=== PATIENT | female | born 1960 | race Caucasian/White ===

== ENCOUNTER 2016-12-31 06:04 | Emergency (ER) | payer BC ==
[~2016-12-31] VITALS: Ht 172.7 cm; Wt 71.0 kg
[~2016-12-31 06:04] MED LIST: ASPI81TA28 PO; ATEN-173 PO; CHOL100010 PO; DXM/4 PO; LENA10CA3 PO; MISCCAP52 PO; POTA10CA28 PO; VALA500T39 PO; VLCI IV; ZOLE1INJ IV
[2016-12-31 06:09] VITALS: TEMP 36.7; Ht 172.7 cm; Wt 71.0 kg
[2016-12-31] MEDS ORDERED: CHOL200010 PO (06:47)
[2016-12-31] MEDS ORDERED: TURM1CAP4 PO (06:48)
[2016-12-31] MEDS ORDERED: SODIUM CHLORIDE 0.9% 250ML 250 ML IV STA (06:54)
[2016-12-31] MEDS ORDERED: SODIUM CHLORIDE 0.9% 1000ML 1,000 ML IV STA (06:54)
[2016-12-31 07:04] LABS: BASO % 0.3 %; BASO ABS # 0.02 K/uL (0-0.2); COMPLETE YES; HEMATOCRIT 40.3 % (37-47); IG% 0.3 %; LYMPH % 32.2 %; LYMPH ABS # 1.92 K/uL (1.2-3.4); MEAN CELL VOLUME 94.4 fL (80-100); MEAN CORPUSCULAR HEMOGLOBIN 32.6 pg (25-34); MEAN CORPUSCULAR HGB CONC 34.5 g/dl (32-36); MEAN PLATELET VOLUME 10.6 fL (7.4-10.4); MONO % 17.8 %; NEUT % 45.4 %; PLATELET COUNT 190 K/uL (130-400); RED BLOOD COUNT 4.27 M/uL (4.2-5.4); WHITE BLOOD COUNT 5.96 K/uL (4.8-10.8)
--- NOTE | 2016-12-31 07:09 | EMERGENCY ROOM VISIT NOTE ---
History Report prepared by Trish: Bayron Rolle Under the Supervision of: Dr. Jaelyn Siegel M.D. First contact with patient: 06:46 Chief Complaint: ABDOMINAL PAIN Stated Complaint: LWR BELLY PAIN,RT SIDE,LWR BACK PAIN Nursing Triage Summary: patient has c/o right lower quadrant abdominal pain for past couple weeks that has been worsening since yesterday. Patient sees oncologist for multiple myeloma and was told by her oncologist to be ruled out for kidney stone. History of Present Illness The patient is a 56 year old female who presents to the Emergency Room with complaints of persistent abdominal pain that started two weeks ago. She notes that the discomfort is mostly on the right side of abdomen. The patient notes that this discomfort radiates into her lower back. The patient notes that she waited because she thought it would get better. The patient also thought that it could be from her Velcade shot. However, after talking with her doctors they recommended she present to the ED for evaluation, a CT scan, and a rule out of kidney stone. The patient has a history of multiple myeloma and has multiple lesions all over her body. She has had multiple hairline fractures in her hip and femur. The patient denies blood in her stool and vomiting. Source of History: patient Onset: two weeks ago Position: abdomen Timing: other (persistent) Associated Symptoms: + back pain (radiation to low back), No hematochezia, No vomiting Review of Systems See HPI for pertinent positives & negatives. A total of 10 systems reviewed and were otherwise negative. Past Medical & Surgical Medical Problems: (1) Leaky heart valve (2) Multiple myeloma (3) Systolic murmur Surgical Problems: (1) H/O stem cell transplant Family History Cancer Heart disease Social History Smoking Status: Never Smoker Alcohol Use: none Drug Use: none Marital Status: Housing Status: lives with family Occupation Status: employed Current/Historical Medications Scheduled Aspirin (Aspirin Ec), 81 MG PO DAILY Atenolol (Tenormin), 12.5 MG PO DAILY Bortezomib (Velcade), 2.34 MG IV MONTHLY Cholecalciferol (Vitamin D), 4,000 UNIT PO DAILY Dexamethasone (Decadron), 20 MG PO MONTHLY Lenalidomide (Revlimid), 10 MG PO DAILY Potassium Chloride (Micro-K Ext Rel), 10 MEQ PO DAILY Turmeric (Curcuma Longa) (Turmeric), 7,000 UNIT PO DAILY Valacyclovir Hcl (Valtrex), 500 MG PO DAILY Scheduled PRN Cyclobenzaprine Hcl (Flexeril), 5 MG PO TID PRN for Muscle Spasms Allergies Coded Allergies: No Known Allergies (Unverified , 12/31/16) Physical Exam Vital Signs Date Time Temp Pulse Resp B/P Pulse Ox O2 Delivery O2 Flow Rate FiO2 12/31/16 12:33 77 16 135/74 99 12/31/16 10:54 69 16 120/62 97 Room Air 12/31/16 09:02 65 16 111/57 100 Room Air 12/31/16 07:36 69 12/31/16 07:28 61 16 116/47 100 Room Air 12/31/16 06:09 36.7 71 20 129/82 100 Room Air Physical Exam Vital signs reviewed. General: Well-appearing, in no significant distress. HEENT: No scleral icterus, PERRLA, neck supple. Atraumatic. Cardiovascular: Regular rate and rhythm, no extra sounds. Pulmonary: Clear to auscultation bilaterally, normal work of breathing. Abdomen: Soft, mild tenderness to palpation of RLQ with no rebound or guarding, nondistended, positive bowel sounds. Back: Minimal tenderness to palpation to low lumbar spine with no stepoff or deformity Musculoskeletal: Atraumatic, no peripheral edema. Neurologic: Patient awake alert and oriented x 3, full strength in all 4 extremities. Cranial nerves 2 through 12 grossly intact. Skin: Warm, dry, no rash Medical Decision & Procedures ER Provider Diagnostic Interpretation: X-ray results as stated below per my interpretation and radiologist interpretation. Other radiology results as stated below per my review and radiologist interpretation: ABDOMEN AND PELVIS CT WITH IV AND ORAL CONTRAST CT DOSE: HISTORY: Pain R flank, RLQ pain, multiple myeloma TECHNIQUE: Multiaxial CT images of the abdomen and pelvis were performed following the use of intravenous and oral contrast. COMPARISON STUDY: PET/CT fusion scan dated 02/04/2016 Findings: No significant abnormality identified within the abdomen or pelvis. Lung bases are clear. Liver is uniform throughout. Spleen is unremarkable. Kidneys negative for hydronephrosis. Bowel pattern overall is nonobstructive. There is no significant abdominal pelvic or inguinal adenopathy. Diffuse myelomatous change throughout all major components of the visualized thoracolumbar spine bony pelvis and hips are again noted. These findings are generally stable compared to the patient's prior PET scan. There is a small cortical fracture right transverse process of L2 which potentially represents an interval finding. There are several old right-sided rib fractures. There is no evidence for compression deformity. The appendix is not well seen although there is no significant pericecal or right lower quadrant inflammatory process. Small sections of the appendix are identified transaxial image 47 and 48 which appear normal. There is mild concave deformity superior endplate L4 felt to be old. Old fracture right pubic ring considered pre-existing IMPRESSION: Diffuse stable myelomatous change throughout all major osseous structures. 2. Nondisplaced cortical fracture right lateral transverse process of L2. 3. The bowel Pattern is nonobstructive. 4. No evidence for appendicitis. Electronically signed by: Syd Green M.D. 12/31/2016 11:24 AM Dictated Date/Time: 12/31/2016 11:[address] DOSE: 318.27 mGy.cm HISTORY: right flank pain, multiple myeloma, compression fracture TECHNIQUE: Multiaxial CT images of the lumbar spine were performed and reformatted in the sagittal and coronal plane without the use of contrast. COMPARISON: PET CT 02/04/2016. FINDINGS: Multiple lytic lesions seen scattered throughout the visualized osseous structures consistent with the patient's known history of multiple myeloma. Mild superior endplate compression fracture at L4 remains unchanged. This demonstrates up to 15% loss of height centrally. No acute pathologic fractures within the lumbar spine identified. Mild disc space narrowing at L4-L5. Disc bulges at L3-L4 and L4-L5 results in moderate to severe central canal narrowing at these levels. Moderate facet degenerative changes seen within the lower lumbar spine. Sacral Tarlov cysts remain unchanged. No paraspinal soft tissue masses. There is also mild to moderate central canal narrowing at L5-S1 due to the broad-based posterior disc bulge. IMPRESSION: 1. No change in the mild old superior endplate compression deformity at L4. No acute fractures identified within the lumbar spine. 2. Multiple small lytic lesions seen throughout the visualized osseous structures. This is consistent with the patient's history of multiple myeloma. No paraspinal soft tissue masses. 3. Degenerative changes as described above. Electronically signed by: Kristofer Lagos M.D. 12/31/2016 11:17 AM Dictated Date/Time: 12/31/2016 11:06 AM Laboratory Results 2/1/17 06:25 Red Blood Count 4.27, Mean Corpuscular Volume 94.4, Mean Corpuscular Hemoglobin 32.6, Mean Corpuscular Hemoglobin Concent 34.5, Mean Platelet Volume 10.6, Neutrophils (%) (Auto) 45.4, Lymphocytes (%) (Auto) 32.2, Monocytes (%) (Auto) 17.8, Eosinophils (%) (Auto) 4.0, Basophils (%) (Auto) 0.3, Neutrophils # (Auto ) 2.70, Lymphocytes # (Auto) 1.92, Monocytes # (Auto) 1.06, Eosinophils # (Auto ) 0.24, Basophils # (Auto) 0.02 12/31/16 06:25 Test 12/31/16 06:20 12/31/16 06:25 Urine Color YELLOW Urine Appearance CLEAR (CLEAR) Urine pH 6.5 (4.5-7.5) Urine Specific [place] 1.000 (1.000-1.030) Urine Protein NEG (NEG) Urine Glucose (UA) NEG (NEG) Urine Ketones NEG (NEG) Urine Occult Blood TRACE (NEG) Urine Nitrite NEG (NEG) Urine Bilirubin NEG (NEG) Urine Urobilinogen NEG (NEG) Urine Leukocyte Esterase NEG (NEG) Urine WBC (Auto) /hpf (0-5) Urine RBC (Auto) /hpf (0-4) Urine Hyaline Casts (Auto) /lpf (0-5) Urine Epithelial Cells (Auto) /lpf (0-5) Urine Bacteria (Auto) (NEG) Urine RBC 0-4 /hpf (0-4) Urine WBC 1-5 /hpf (0-5) Urine Epithelial Cells 0-5 /lpf (0-5) Urine Bacteria NEG (NEG) White Blood Count 5.96 K/uL (4.8-10.8) Red Blood Count 4.27 M/uL (4.2-5.4) Hemoglobin 13.9 g/dL (12.0-16.0) Hematocrit 40.3 % (37-47) Mean Corpuscular Volume 94.4 fL (80-100) Mean Corpuscular Hemoglobin 32.6 pg (25-34) Mean Corpuscular Hemoglobin Concent 34.5 g/dl (32-36) Platelet Count 190 K/uL (130-400) Mean Platelet Volume 10.6 fL (7.4-10.4) Neutrophils (%) (Auto) 45.4 % Lymphocytes (%) (Auto) 32.2 % Monocytes (%) (Auto) 17.8 % Eosinophils (%) (Auto) 4.0 % Basophils (%) (Auto) 0.3 % Neutrophils # (Auto) 2.70 K/uL (1.4-6.5) Lymphocytes # (Auto) 1.92 K/uL (1.2-3.4) Monocytes # (Auto) 1.06 K/uL (0.11-0.59) Eosinophils # (Auto) 0.24 K/uL (0-0.5) Basophils # (Auto) 0.02 K/uL (0-0.2) RDW Standard Deviation 48.9 fL (36.4-46.3) RDW Coefficient of Variation 14.3 % (11.5-14.5) Immature Granulocyte % (Auto) 0.3 % Immature Granulocyte # (Auto) 0.02 K/uL (0.00-0.02) Anion Gap 9.0 mmol/L (3-11) Est Creatinine Clear Calc Drug Dose 79.2 ml/min Estimated GFR () 95.5 Estimated GFR (Non- 82.4 BUN/Creatinine Ratio 16.9 (10-20) Calcium Level 8.9 mg/dl (8.5-10.1) Magnesium Level 1.9 mg/dl (1.8-2.4) Total Bilirubin 0.4 mg/dl (0.2-1) Direct Bilirubin < 0.1 mg/dl (0-0.2) Aspartate Amino Transf (AST/SGOT) 23 U/L (15-37) Alanine Aminotransferase (ALT/SGPT) 30 U/L (12-78) Alkaline Phosphatase 47 U/L (45-117) Total Protein 7.8 gm/dl (6.4-8.2) Albumin 4.3 gm/dl (3.4-5.0) Lipase 169 U/L (73-393) Laboratory results per my review. Medications Administered Medications (Trade) Dose Ordered Sig/Yumi Route Start Time Stop Time Status Last Admin Dose Admin Sodium Chloride 250 ml @ 999 mls/hr Q16M STAT IV 12/31/16 06:54 12/31/16 07:09 DC 12/31/16 07:04 999 MLS/HR Sodium Chloride (Nss 1000ml) 1,000 ml @ 125 mls/hr Q8H STAT IV 12/31/16 06:54 12/31/16 13:00 DC 12/31/16 07:26 125 MLS/HR ED Course 0645: Past medical records reviewed. The patient was evaluated in room B10. A complete history and physical examination was performed. 0654: Ordered NSS 1000 ml @ 125 mls/hr IV, NSS 250 ml @ 999 mls/hr IV. 0800: Ordered Ioversol 100 ml IV/ Interaction checking. 1245: Upon reevaluation, the patient appeared to have improvement of her symptoms. I discussed findings with her. She verbalized agreement of the treatment plan. The patient was discharged home. Medical Decision Differential diagnoses include kidney stone, pyelonephritis, cholecystitis, diverticulitis, compression fracture, radiculopathy. This pt was evaluated and appeared to be in no distress. IV access was obtained and lab work was drawn. Urinalysis was performed and is negative. CT abd/pelvis was performed and is read as above. The most significant findings are myelogenous changes of the skeleton, including the spine. I suspect the pt is suffering a radiculopathy with the findings. Pt has pain medication at home , but isn't taking much. She was advised of the findings and was asked to f/u with oncology for reevaluation and she may warrant a spine c/s. Pt was happy with the plan and agrees. Impression Primary Impression: Right lumbar radiculopathy Additional Impression: Multiple myeloma Scribe Attestation The scribe's documentation has been prepared under my direction and personally reviewed by me in its entirety. I confirm that the note above accurately reflects all work, treatment, procedures, and medical decision making performed by me. Departure Information Dispostion Home / Self-Care Prescriptions Cyclobenzaprine Hcl (FLEXERIL) 5 Mg Tab 5 MG PO TID Y for Muscle Spasms, #20 TAB Prov: Jaelyn Siegel M.D. 12/31/16 Referrals Dewayne Trotter MD (PCP) Forms Call Back Authorization, HOME CARE DOCUMENTATION FORM, IMPORTANT VISIT INFORMATION Patient Instructions My [facility] Additional Instructions Diagnosis: Lumbar radiculopathy, multiple myeloma with spine lesions Flexeril 5 mg 3 times daily as needed. Ibuprofen 600 mg every 6 hours as needed for pain with food. Take your prescribed pain medication as needed for significant discomfort. Warm compresses and gentle stretching. Follow-up with your physician this week for reevaluation and return to the ER for worsening of symptoms or any medical concerns. Problem Qualifiers Additional Impression: Multiple myeloma Multiple myeloma remission status: unspecified Qualified Codes: C90.00 - Multiple myeloma not having achieved remission
[2016-12-31 07:12] LABS: ALT/SGPT 30 U/L (12-78); AST/SGOT 23 U/L (15-37); BLOOD UREA NITROGEN 14 mg/dl (7-18); BUN/CREATININE RATIO 16.9 (10-20); CALCIUM 8.9 mg/dl (8.5-10.1); CARBON DIOXIDE 26 mmol/L (21-32); CHLORIDE 103 mmol/L (98-107); GLUCOSE 87 mg/dl (70-99); MAGNESIUM 1.9 mg/dl (1.8-2.4); POTASSIUM 3.6 mmol/L (3.5-5.1); SODIUM 138 mmol/L (136-145)
[2016-12-31 07:14] LABS: MANUAL MICROSCOPIC REQUIRED? YES; REVIEW REQ? NO; URINE APPEARANCE CLEAR (CLEAR); URINE BILIRUBIN NEG (NEG); URINE COLOR YELLOW; URINE NITRITE NEG (NEG); URINE PH 6.5 (4.5-7.5); UROBILINOGEN NEG (NEG); ZZUR CULT IF INDIC CLEAN CATCH NO
[2016-12-31 07:15] LABS: ALKALINE PHOSPHATASE 47 U/L (45-117)
[2016-12-31 07:31] LABS: URINE BACTERIA NEG (NEG); URINE RBC 0-4 /hpf (0-4)
[2016-12-31] MEDS ORDERED: OPTIRAY 320 IV PRN (08:00)
--- NOTE | 2016-12-31 11:19 | DIAGNOSTIC IMAGING REPORT ---
LUMBAR SPINE CT CT DOSE: 318.27 mGy.cm HISTORY: right flank pain, multiple myeloma, compression fracture TECHNIQUE: Multiaxial CT images of the lumbar spine were performed and reformatted in the sagittal and coronal plane without the use of contrast. COMPARISON: PET CT 02/04/2016. FINDINGS: Multiple lytic lesions seen scattered throughout the visualized osseous structures consistent with the patient's known history of multiple myeloma. Mild superior endplate compression fracture at L4 remains unchanged. This demonstrates up to 15% loss of height centrally. No acute pathologic fractures within the lumbar spine identified. Mild disc space narrowing at L4-L5. Disc bulges at L3-L4 and L4-L5 results in moderate to severe central canal narrowing at these levels. Moderate facet degenerative changes seen within the lower lumbar spine. Sacral Tarlov cysts remain unchanged. No paraspinal soft tissue masses. There is also mild to moderate central canal narrowing at L5-S1 due to the broad-based posterior disc bulge. IMPRESSION: 1. No change in the mild old superior endplate compression deformity at L4. No acute fractures identified within the lumbar spine. 2. Multiple small lytic lesions seen throughout the visualized osseous structures. This is consistent with the patient's history of multiple myeloma. No paraspinal soft tissue masses. 3. Degenerative changes as described above. Electronically signed by: Kristofer Lagos M.D. 12/31/2016 11:17 AM Dictated Date/Time: 12/31/2016 11:06 AM
--- NOTE | 2016-12-31 11:25 | DIAGNOSTIC IMAGING REPORT ---
ABDOMEN AND PELVIS CT WITH IV AND ORAL CONTRAST CT DOSE: HISTORY: Pain R flank, RLQ pain, multiple myeloma TECHNIQUE: Multiaxial CT images of the abdomen and pelvis were performed following the use of intravenous and oral contrast. COMPARISON STUDY: PET/CT fusion scan dated 02/04/2016 Findings: No significant abnormality identified within the abdomen or pelvis. Lung bases are clear. Liver is uniform throughout. Spleen is unremarkable. Kidneys negative for hydronephrosis. Bowel pattern overall is nonobstructive. There is no significant abdominal pelvic or inguinal adenopathy. Diffuse myelomatous change throughout all major components of the visualized thoracolumbar spine bony pelvis and hips are again noted. These findings are generally stable compared to the patient's prior PET scan. There is a small cortical fracture right transverse process of L2 which potentially represents an interval finding. There are several old right-sided rib fractures. There is no evidence for compression deformity. The appendix is not well seen although there is no significant pericecal or right lower quadrant inflammatory process. Small sections of the appendix are identified transaxial image 47 and 48 which appear normal. There is mild concave deformity superior endplate L4 felt to be old. Old fracture right pubic ring considered pre-existing IMPRESSION: Diffuse stable myelomatous change throughout all major osseous structures. 2. Nondisplaced cortical fracture right lateral transverse process of L2. 3. The bowel Pattern is nonobstructive. 4. No evidence for appendicitis. Electronically signed by: Syd Green M.D. 12/31/2016 11:24 AM Dictated Date/Time: 12/31/2016 11:07 AM
[2016-12-31] MEDS ORDERED: CYCL5TAB PO (12:25)
[2016-12-31 12:33] VITALS: BP 135/74; PULSE 77; O2SAT 99
== END 2016-12-31 12:34 | disposition home or self-care (01) ==
LOC: C.EDB 06:06
DX: M54.16 Radiculopathy, lumbar region (principal); C90.00 Multiple myeloma not having achieved remission; Z79.82 Long term (current) use of aspirin; Z79.899 Other long term (current) drug therapy

== ENCOUNTER → 2017-02-11 | Outpatient (CLI) | payer BC ==
[~2017-02-11] MED LIST changes: -CHOL100010 PO; +CHOL200010 PO; -MISCCAP52 PO; +TURM1CAP4 PO; -ZOLE1INJ IV
--- NOTE | 2017-02-11 10:01 | DIAGNOSTIC IMAGING REPORT ---
PET/CT HISTORY: Mild MYELOMA TECHNIQUE: PET/CT was performed from the base of the skull through the pelvis following the intravenous administration of 12.4 mCi of F18-FDG. Non-contrast CT imaging was performed over the same range without breath-hold for attenuation correction of PET images and anatomic correlation, but not for primary interpretation as it is not of standard diagnostic quality. CT DOSE: COMPARISON: None. FINDINGS: HEAD AND NECK: There is no FDG-avid disease or significant lymphadenopathy in the imaged portions of the head and the neck. CHEST: There is no FDG-avid disease in the chest. There is no axillary, mediastinal, or hilar lymphadenopathy. There is no pleural or pericardial effusion. There is no air-space disease or suspicious lung nodule. ABDOMEN/PELVIS: Below the diaphragm, tracer is distributed physiologically in the gastrointestinal and genitourinary tracts. There is no significant lymphadenopathy and no FDG-avid disease. MUSCULOSKELETAL: Generalized heterogeneous bony osteopenia similar to the prior study. This again shows no significant increase in metabolic activity IMPRESSION: Diffuse in homogeneity of the osseous structures similar to the prior exam. No abnormal foci of FDG activity is identified however. No major change from the prior study. Electronically signed by: Syd Green M.D. 02/11/2017 10:00 AM Dictated Date/Time: 02/11/2017 9:53 AM
== END | disposition home or self-care (01) ==
LOC: C.PET 06:09
PROVIDERS: ATTEND Internal Medicine Hematology
DX: C90.00 Multiple myeloma not having achieved remission (principal)

== ENCOUNTER → 2018-02-01 | Outpatient (CLI) | payer BC ==
--- NOTE | 2018-02-01 11:47 | DIAGNOSTIC IMAGING REPORT ---
PET/CT FULL BODY CLINICAL HISTORY: 57 years-old Female presenting with MYELOMA. TECHNIQUE: PET/CT was performed from the vertex through the feet following the intravenous administration of 14.508 mCi of F18-FDG. Blood glucose level 87 mg/dL. The injection was performed at 7:30 AM and imaging began at 8:[address] was performed for attenuation correction purposes and anatomic localization. COMPARISON: 02/11/2017. CT DOSE (mGy.cm): The estimated cumulative dose is 864.52 mGycm. FINDINGS: Head and neck: No FDG-avid mass in the visualized portion of the head or neck. No FDG avid or enlarged lymph nodes in the neck. Chest: No FDG-avid lymphadenopathy or pulmonary opacities. No axillary, supraclavicular, or mediastinal lymphadenopathy. Evaluation of the moe limited without intravenous contrast. Normal aorta. Normal heart size. No pericardial or pleural effusion. Dependent changes in the lungs likely atelectasis. Abdomen and pelvis: Normal physiologic distribution of radiotracer in the gastrointestinal and genitourinary tracts. No FDG avid lymphadenopathy or mass lesion. Musculoskeletal: No FDG-avid or destructive osseous lesion. Mild FDG avidity at the first and second metatarsophalangeal joints of the right foot as well as the bilateral knee joints, likely degenerative in etiology. Degenerative changes of the spine. Diffusely heterogeneously lucent bone marrow. Osteopenia. IMPRESSION: 1. Follow-up PET/CT demonstrates no FDG avid osseous lesions to suggest active disease. Diffusely heterogeneous bone marrow and osteopenia. 2. Degenerative changes at the first and second metatarsophalangeal joints of the right foot and knee joints. Electronically signed by: Samuel Ko M.D. 02/01/2018 11:45 AM Dictated Date/Time: 02/01/2018 11:36 AM
== END | disposition home or self-care (01) ==
LOC: C.PET 06:55
PROVIDERS: ATTEND Student in an Organized Health Care Education/Training Program
DX: C90.00 Multiple myeloma not having achieved remission (principal)

== ENCOUNTER 2022-12-15 20:05 | Inpatient (IN) ==
[2022-12-15 20:32] LABS: Hematocrit (blood only) 37.9 % (34.1-44.9); Hemoglobin 13.4 g/dl (12.0-16.0); Immature Granulocytes # (auto) 0.02 K/uL (0.00-0.02); Immature Granulocytes % (auto) 0.4 %; Lymphocytes # (auto) 0.77 K/uL (1.2-3.4); Lymphocytes % (auto) 15.4 %; Mean Corpuscular Hemoglobin 33.4 pg (25.0-34.0); Mean Corpuscular Hgb Conc 35.4 g/dL (32.0-36.0); Mean Corpuscular Volume 94.5 fL (80.0-100.0); Mean Platelet Volume 10.6 fL (9.4-12.3); Monocytes # (auto) 0.04 K/uL (0.24-0.82); Monocytes % (auto) 0.8 %; Neutrophils # (auto) 4.17 K/uL (1.4-6.5); Neutrophils % (auto) 83.4 %; Platelet Count 167 K/uL (130-400); RDW Coefficient of Variation 13.2 % (11.5-14.5); RDW Standard Deviation 45.9 fL (36.4-46.3); Red Blood Count 4.01 M/uL (3.93-5.22)
[2022-12-15 20:53] LABS: Albumin Globulin Ratio 1.7 (0.9-2); Albumin Level 4.6 gm/dl (3.4-5.0); BUN Creatinine Ratio 23.2 (10-20); Bilirubin,Total 0.9 mg/dl (0.2-1.0); Calcium 9.9 mg/dl (8.5-10.1); Creatinine Clr Calc Pharmacy 85.3 ml/min; Est GFR (African American) 108.1 ml/min; Est GFR (Non-African American) 93.3 ml/min; Globulin 2.7 gm/dl (2.5-4.0); Potassium 3.7 mmol/L (3.5-5.1); Total Protein 7.3 gm/dl (6.0-8.3)
[2022-12-15] MEDS ORDERED: SODIUM CHLORIDE 0.9% 1000ML 1,000 ML IV ONE (22:19)
[2022-12-15] MEDS ORDERED: ONDANSETRON INJ 2 MG/ML 2 ML VIAL IV STA (22:19)
[2022-12-15] MEDS ORDERED: HYDROmorphone INJ 0.5 MG/0.5 ML SYR IV STA (22:19)
[2022-12-15] MEDS ORDERED: OPTIRAY 320 500ml IV ONE (22:48)
--- NOTE | 2022-12-15 23:02 | Emergency Department Note ---
ED Provider Note History of Present Illness Chief Complaint: Abdominal Pain Stated Complaint: BACK PAIN, HAS CHEMO, Time Seen by Provider: 12/15/22 22:13 This 62-year-old female with multiple myeloma presents to the ER complaining of severe mid abdominal pain and chest pain for the past day. Patient did receive a Remicade injection today. Patient denies fevers, vomiting, urinary symptoms, flulike illness. Colonoscopy was normal 2 years ago. No history of diverticulitis. No prior abdominal surgeries. Home Medications Medication Instructions Recorded Confirmed Type aspirin 81 mg tablet,delayed 81 mg PO DAILY 02/06/19 12/15/22 History release (Sarah Low Dose Aspirin) dexamethasone 4 mg tablet 20 mg PO . EVERY OTHER WEEK 02/06/19 12/15/22 History lenalidomide 10 mg capsule 10 mg PO UD 02/06/19 12/15/22 History (Revlimid) metoprolol succinate 25 mg 25 mg PO QAM 02/06/19 12/15/22 History tablet,extended release 24 hr potassium chloride 10 mEq 10 meq PO QAM 02/06/19 12/15/22 History tablet,extended release valacyclovir 500 mg tablet 500 mg PO QAM 02/06/19 12/15/22 History betamethasone, augmented 0.05 % 1 applic topical BID PRN flares 12/15/22 12/15/22 History topical ointment rosuvastatin 10 mg tablet 10 mg PO QAM 12/15/22 12/15/22 History temazepam 30 mg capsule 30 mg PO HS PRN Sleep 12/15/22 12/15/22 History turmeric root extract 500 mg tablet 7,000 mg PO DAILY 12/15/22 12/15/22 History Allergies Allergy/AdvReac Type Severity Reaction Status Date / Time No Known Allergies Allergy Unverified 02/06/19 07:04 Past Med/Surg History Medical History (Updated 12/16/22 @ 00:17 by Josephine Mendiola PA-C) Leaky heart valve Multiple myeloma Systolic murmur Family History Other No pertinent family history Social History Smoking Status: Former smoker Preferred Language: Georgian Feels Safe at Home: Yes Immunizations: An 10 system review of systems was completed with positives and pertinent negatives listed in the HPI. Physical Exam Vital Signs Vital Signs - 24 hr 12/15/22 20:10 12/15/22 20:06 12/15/22 22:06 Temperature 36.5 C Temperature Source Temporal Artery Scan Pulse Rate 79 Respiratory Rate 18 Respiratory Effort / Characteristics Non-Labored Non-Labored Spontaneous Respiratory Depth Normal Normal Normal Respiratory Pattern Regular Blood Pressure 135/85 Blood Pressure Mean 101 Pulse Oximetry 100 Oxygen Delivery Method Room Air Room Air Room Air Sepsis New/Unexplained Change in Mental Status N/A Sepsis Action Taken by Nursing No Action Required VITALS: Vitals are noted on the nurse's note and reviewed by myself. Vital signs stable. GENERAL: Pleasant female, in no acute distress, nondiaphoretic, well-developed well-nourished. SKIN: The skin was without rashes, erythema, edema, or bruising. There is no tenting of the skin. Capillary reflex less than 2 seconds. HEAD: Normocephalic atraumatic. EARS: External auditory canals clear, EYES: Pupils equal round and reactive to light and accommodation. Conjunctivae without injection, sclerae without icterus. Extraocular movements intact. NOSE: Patent, turbinates without inflammation or discharge MOUTH: Mucous membranes moist. Pharynx without erythema or exudate. Uvula midline. Airway patent. Tongue does not deviate. NECK: Supple without nuchal rigidity. No lymphadenopathy. No thyromegaly. Cervical spine is nontender. No JVD. HEART: Regular rate and rhythm LUNGS: Clear to auscultation bilaterally without wheezes, rales or rhonchi. No retractions or accessory muscle use. ABDOMEN: Positive bowel sounds x 4. Normal tympanic percussion. Soft, tender to palpation mid abdomen, without masses or organomegaly. Trotter sign negative. No guarding or rebound tenderness. No CVA tenderness MUSCULOSKELETAL: No muscle atrophy, erythema, or edema noted. NEURO: Patient was alert and oriented to person place and time. Normal sensation to light and sharp touch. No focal neurological deficits. Course Administered Medications Discontinued Medications Hydromorphone HCl (Hydromorphone Inj 0.5 Mg/0.5 Ml Syr) 0.5 mg IV NOW STA Stop: 12/15/22 22:20 Last Admin: 12/15/22 23:00 Dose: 0.5 mg Documented By: ANA Sodium Chloride (Nss 1000ml) 1,000 mls @ 999 mls/hr IV .Q1H1M ONE Stop: 12/15/22 23:19 Last Admin: 12/15/22 23:03 Dose: 999 mls/hr Documented By: ANA Ioversol (Optiray 320 500ml) 125 ml IV ONCE ONE Stop: 12/15/22 22:49 Last Admin: 12/15/22 22:49 Dose: 114 ml Documented By: LINDA Ondansetron HCl (Ondansetron Inj 2 Mg/Ml 2 Ml Vial) 4 mg IV NOW STA Stop: 12/15/22 22:20 Last Admin: 12/15/22 23:00 Dose: 4 mg Documented By: ANA Medical Decision Making Medical Records Attestation: I reviewed the patient's medical records. Home Medications was personally reviewed by me Laboratory Data Attestation: I reviewed the patient's lab results. 12/15/22 20:00 12/15/22 20:00 Lab Results 12/15/22 12/15/22 12/15/22 Range/Units 20:00 20:00 Unknown WBC 5.00 (4.8-10.8) K/ul RBC 4.01 (3.93-5.22) M/uL Hgb 13.4 (12.0-16.0) g/dl Hct 37.9 (34.1-44.9) % MCV 94.5 (80.0-100.0) fL MCH 33.4 (25.0-34.0) pg MCHC 35.4 (32.0-36.0) g/dL RDW Std Deviation 45.9 (36.4-46.3) fL RDW Coeff of Kathy 13.2 (11.5-14.5) % Plt Count 167 (130-400) K/uL MPV 10.6 (9.4-12.3) fL Immature Gran % (Auto) 0.4 % Neut % (Auto) 83.4 % Lymph % (Auto) 15.4 % Graves % (Auto) 0.8 % Eos % (Auto) 0.0 % Baso % (Auto) 0.0 % Neut # (Auto) 4.17 (1.4-6.5) K/uL Lymph # (Auto) 0.77 L (1.2-3.4) K/uL Graves # (Auto) 0.04 L (0.24-0.82) K/uL Eos # (Auto) 0.00 (0-0.50) K/uL Baso # (Auto) 0.00 (0-0.2) K/uL Immature Gran # (Auto) 0.02 (0.00-0.02) K/uL Sodium 136 (136-145) mmol/L Potassium 3.7 (3.5-5.1) mmol/L Chloride 102 (98-107) mmol/L Carbon Dioxide 26 (21-32) mmol/L Anion Gap 8 (3-11) BUN 16 (6-23) mg/dl Creatinine 0.69 (0.6-1.2) mg/dl Est Cr Clr Drug Dosing 85.3 ml/min Est GFR ( Amer) 108.1 ml/min Est GFR (Non-Af Amer) 93.3 ml/min BUN/Creatinine Ratio 23.2 H (10-20) Glucose 132 H (70-99(Fasting)) mg/dl Calcium 9.9 (8.5-10.1) mg/dl Total Bilirubin 0.9 (0.2-1.0) mg/dl AST 21 (13-39) U/L ALT 23 (7-52) U/L Alkaline Phosphatase 38 (34-104) U/L Total Protein 7.3 (6.0-8.3) gm/dl Albumin 4.6 (3.4-5.0) gm/dl Globulin 2.7 (2.5-4.0) gm/dl Albumin/Globulin Ratio 1.7 (0.9-2) Lipase 15 (11-82) U/L Urine Color Yellow Urine Appearance Clear (Clear) Urine pH 7.0 (4.5-7.5) Ur Specific Meadow 1.030 (1.000-1.030) Urine Protein Negative (Negative) Urine Glucose (UA) Negative (Negative) Urine Ketones Negative (Negative) Urine Blood Trace H (Negative) Urine Nitrite Negative (Negative) Urine Bilirubin Negative (Negative) Urine Urobilinogen Negative (Negative) Ur Leukocyte Esterase Negative (Negative) Urine WBC (Auto) 0 (0-5) /hpf Urine RBC (Auto) 0-4 (0-4) /hpf U Hyaline Cast (Auto) 0 (0-5) /lpf U Epithel Cells (Auto) 0-5 (0-5) /lpf Urine Bacteria (Auto) Negative (Negative) Imaging Data Attestation: I personally reviewed and interpreted this imaging study as follows: Radiologist's Impression: Abdomen/Pelvis CT 12/15/22 22:19 CT ANGIOGRAM OF THE CHEST; CT SCAN OF THE ABDOMEN AND PELVIS WITH IV CONTRAST CLINICAL HISTORY: Atypical chest pain. Dyspnea. Generalized abdominal pain. History of multiple myeloma. COMPARISON STUDY: Chest CT dated 02/06/2019. Abdominal CT dated 12/31/2016. TECHNIQUE: Following the IV administration of 114 of Optiray 320, CT angiogram of the chest is performed from the upper abdomen to the thoracic inlet utilizing the pulmonary embolus protocol. Images are reviewed in the axial, sagittal, coronal planes. 3-D MIPS images are created and assessed. Subsequently, CT scan of the abdomen and pelvis was performed from the lung bases to the proximal femora. Images are reviewed in the axial, sagittal, and coronal planes. IV contrast was administered without complication. A dose lowering technique was utilized adhering to the principles of ALARA. CT DOSE: 584.62 mGy.cm FINDINGS: CHEST: Thyroid: Normal in size and heterogeneous in attenuation. Thoracic aorta: The thoracic aorta is normal in caliber and demonstrates standard 3-vessel arch anatomy. No dissection is seen. Pulmonary vasculature: The pulmonary trunk is normal in caliber. There are no filling defects identified in the main, lobar, or segmental pulmonary arteries to indicate pulmonary embolus. Heart: The heart is mildly enlarged and without pericardial effusion. There are scattered coronary artery calcifications. Lungs and pleural spaces: There is mild emphysema. No airspace consolidation or pleural effusion is identified. Foci of parenchymal scarring are seen throughout both lungs. The trachea and central airways are clear. Mediastinum: There is no mediastinal lymphadenopathy. Cecille: Clear. Axillae: There is no axillary lymphadenopathy. Bony thorax: The skeletal structures are heterogeneously osteopenic. Diffuse osteolytic bone disease is consistent with the known history of multiple myeloma. There are chronic/healed bilateral rib fractures. ABDOMEN AND PELVIS: Liver: The contrast-enhanced liver is normal in size, contour, and attenuation. There is no intrahepatic biliary ductal dilatation. The hepatic veins and portal veins are patent. Gallbladder: Unremarkable. Spleen: Normal in size and attenuation. Pancreas: Unremarkable. Adrenal glands: Unremarkable. Kidneys: The contrast enhanced kidneys are normal in size and without hydronephrosis. The kidneys enhance symmetrically. A 15 mm cyst is noted on the right. Abdominal vasculature: The abdominal aorta is normal in course and caliber. Bowel: There is a focally dilated and fecalized loop of distal small bowel in the pelvis seen on axial image #318. There is mild surrounding inflammation. There is an apparent transition point distal to this (axial image #285), and the distal small bowel is decompressed. The upstream small bowel loops are only modestly dilated. There is no pneumatosis intestinalis or portal venous gas. There is moderate colonic fecal retention. The appendix is not identified and reported surgically absent. Peritoneum: There is no intraperitoneal free air or abdominal ascites. Lymphadenopathy: None. Pelvic viscera: The bladder, uterus, and adnexa are normal as visualized. Skeletal structures: The skeletal structures are heterogeneously osteopenic. Diffuse osteolytic bone disease is consistent with a known history of multiple myeloma. There are chronic/healed right pubic ring fractures. There is a minimal chronic superior end plate compression deformity of L4. Mild lumbosacral spond ylosis is observed. Tarlov cysts are noted in the sacrum. IMPRESSION: 1. There is no evidence of pulmonary embolus in the main, lobar, or segmental pulmonary arteries. 2. Cardiomegaly and mild emphysema. 3. No airspace consolidation or pleural effusions. 4. There is a focally dilated and fecalized loop of distal small bowel in the pelvis as detailed above with surrounding inflammation. There is an apparent focal transition point distal to this loop, and the distal small bowel is decompressed. There is only mild dilatation of the proximal small bowel. A developing bowel obstruction is not excluded. There is no proximal transition point identified to suggest closed loop obstruction. Clinical correlation will be essential and surgical evaluation is advised. 5. Diffuse osteolytic bone disease is consistent with the known history of multiple myeloma. 6. Additional findings as above. ACT 112: Negative or not required by law. Electronically signed by: Jersey Burt M.D. 12/15/2022 11:18 PM Chest CTA 12/15/22 22:19 CT ANGIOGRAM OF THE CHEST; CT SCAN OF THE ABDOMEN AND PELVIS WITH IV CONTRAST CLINICAL HISTORY: Atypical chest pain. Dyspnea. Generalized abdominal pain. History of multiple myeloma. COMPARISON STUDY: Chest CT dated 02/06/2019. Abdominal CT dated 12/31/2016. TECHNIQUE: Following the IV administration of 114 of Optiray 320, CT angiogram of the chest is performed from the upper abdomen to the thoracic inlet utilizing the pulmonary embolus protocol. Images are reviewed in the axial, sagittal, coronal planes. 3-D MIPS images are created and assessed. Subsequently, CT scan of the abdomen and pelvis was performed from the lung bases to the proximal femora. Images are reviewed in the axial, sagittal, and coronal planes. IV contrast was administered without complication. A dose lowering technique was utilized adhering to the principles of ALARA. CT DOSE: 584.62 mGy.cm FINDINGS: CHEST: Thyroid: Normal in size and heterogeneous in attenuation. Thoracic aorta: The thoracic aorta is normal in caliber and demonstrates standard 3-vessel arch anatomy. No dissection is seen. Pulmonary vasculature: The pulmonary trunk is normal in caliber. There are no filling defects identified in the main, lobar, or segmental pulmonary arteries to indicate pulmonary embolus. Heart: The heart is mildly enlarged and without pericardial effusion. There are scattered coronary artery calcifications. Lungs and pleural spaces: There is mild emphysema. No airspace consolidation or pleural effusion is identified. Foci of parenchymal scarring are seen throughout both lungs. The trachea and central airways are clear. Mediastinum: There is no mediastinal lymphadenopathy. Cecille: Clear. Axillae: There is no axillary lymphadenopathy. Bony thorax: The skeletal structures are heterogeneously osteopenic. Diffuse osteolytic bone disease is consistent with the known history of multiple myeloma. There are chronic/healed bilateral rib fractures. ABDOMEN AND PELVIS: Liver: The contrast-enhanced liver is normal in size, contour, and attenuation. There is no intrahepatic biliary ductal dilatation. The hepatic veins and portal veins are patent. Gallbladder: Unremarkable. Spleen: Normal in size and attenuation. Pancreas: Unremarkable. Adrenal glands: Unremarkable. Kidneys: The contrast enhanced kidneys are normal in size and without hydroneph rosis. The kidneys enhance symmetrically. A 15 mm cyst is noted on the right. Abdominal vasculature: The abdominal aorta is normal in course and caliber. Bowel: There is a focally dilated and fecalized loop of distal small bowel in the pelvis seen on axial image #318. There is mild surrounding inflammation. There is an apparent transition point distal to this (axial image #285), and the distal small bowel is decompressed. The upstream small bowel loops are only modestly dilated. There is no pneumatosis intestinalis or portal venous gas. There is moderate colonic fecal retention. The appendix is not identified and reported surgically absent. Peritoneum: There is no intraperitoneal free air or abdominal ascites. Lymphadenopathy: None. Pelvic viscera: The bladder, uterus, and adnexa are normal as visualized. Skeletal structures: The skeletal structures are heterogeneously osteopenic. Diffuse osteolytic bone disease is consistent with a known history of multiple myeloma. There are chronic/healed right pubic ring fractures. There is a minimal chronic superior end plate compression deformity of L4. Mild lumbosacral spondylosis is observed. Tarlov cysts are noted in the sacrum. IMPRESSION: 1. There is no evidence of pulmonary embolus in the main, lobar, or segmental pulmonary arteries. 2. Cardiomegaly and mild emphysema. 3. No airspace consolidation or pleural effusions. 4. There is a focally dilated and fecalized loop of distal small bowel in the pelvis as detailed above with surrounding inflammation. There is an apparent focal transition point distal to this loop, and the distal small bowel is decompressed. There is only mild dilatation of the proximal small bowel. A developing bowel obstruction is not excluded. There is no proximal transition point identified to suggest closed loop obstruction. Clinical correlation will be essential and surgical evaluation is advised. 5. Diffuse osteolytic bone disease is consistent with the known history of m ultiple myeloma. 6. Additional findings as above. ACT 112: Negative or not required by law. Electronically signed by: Jersey Burt M.D. 12/15/2022 11:18 PM [facility] Narrative Prior records/ancillary studies reviewed. Triage Nursing notes reviewed. Additional history obtained from nursing. The patient's history was concerning for chest and abdominal pain. Differential diagnosis: Etiologies such as cardiac, PE, appendicitis, diverticulitis, PUD, biliary pathology, UTI, pancreatitis, obstruction, mesenteric ischemia, aortic pathology, infections, inflammatory bowel disease, renal colic, as well as others were entertained. Physical examination findings: As above. ER treatment provided: An order was placed for continuous cardiac monitoring. The monitor shows a rate of 60-100 with a sinus rhythm per my interpretation. Dilaudid, Zofran, IV fluids were ordered and given to the patient On reassessment the patient felt better. Diagnostics interpreted by me: ECG: Ordered for chest pain EKG: Normal sinus, normal intervals, no acute ST-T wave changes. Impression normal sinus rhythm interpreted by myself I think arrhythmia is unlikely. EKG shows normal sinus rhythm with no interval abnormalities such as QT prolongation or WPW. There are no findings to suggest Brugada syndrome. Cardiac monitoring in the emergency department reveals no ta chycardic or bradycardic dysrhythmia. Hypertrophic cardiomyopathy was considered but there are no clear historical elements pointing toward this. EKG is not suggestive. The QRS voltage is not extremely large and there are no suggestive Q waves. The labs revealed negative urine, no worrisome leukocytosis Imaging studies: CT was ordered and read by radiology and reviewed by myself. Concerning for possible developing bowel obstruction Consultation: A consultation was placed with the hospitalist. The case was discussed and diagnostics were reviewed. The patient was evaluated in the ER for further treatment. Exam and history seem consistent with acute abdominal pain with developing bowel obstruction. Patient was in moderate amount of pain. Medicine is consulted. Case was discussed with the admission team. Labs and advanced imaging were ordered as patient had severe amount of mid upper abdominal pain. She also has multiple myeloma. She is medicated as above. Patient will be admitted to the medical service.By the evaluation outlined above emergent etiologies such as ap pendicitis, diverticulitis, PUD, biliary pathology, UTI, pancreatitis, mesenteric ischemia, aortic pathology, infections, inflammatory bowel disease, renal colic, as well as others were deemed relatively unlikely. The pt informed about the findings as listed above. All questions were answered and pleased with the treatment. The chart was completed utilizing [employer] Speech voice recognition software. Grammatical errors, random word insertions, pronoun errors, and incomplete sentences are an occassional consequence of this system due to software limitations, ambient noise, and hardware issues. Any formal questions or concerns about the content, text, or information contained within the body of this dictation should be directly addressed to the physician assistant finance director for clarification. Impression Abdominal pain, acute, Small bowel obstruction Discharge Plan Visit Data Chief Complaint: Abdominal Pain Stated Complaint: BACK PAIN, HAS CHEMO, ED Provider: Jaelyn Siegel ED Midlevel Provider: Josephine Mendiola Discharge Problem: Abdominal pain, acute, Small bowel obstruction Patient Disposition: Admitted As Inpatient Condition: Good Forms Stand Alone Forms: [employer] Prescriptions Prescriptions: No Action potassium chloride 10 mEq tablet extended release 10 meq PO QAM valacyclovir 500 mg tablet 500 mg PO QAM aspirin [Sarah Low Dose Aspirin] 81 mg Tablet,Delayed Release (Dr/Ec) 81 mg PO DAILY dexamethasone 4 mg tablet 20 mg PO . EVERY OTHER WEEK Rx Instructions: 5 tablets every other week metoprolol succinate 25 mg tablet extended release 24 hr 25 mg PO QAM lenalidomide [Revlimid] 10 mg capsule 10 mg PO UD Rx Instructions: take 1 capsule daily for 21 days then off for 7 days temazepam 30 mg capsule 30 mg PO HS PRN (Reason: Sleep) betamethasone, augmented 0.05 % ointment 1 applic TOPICAL BID PRN (Reason: flares) Rx Instructions: apply to fingers rosuvastatin 10 mg tablet 10 mg PO QAM turmeric root extract 500 mg Tablet 7,000 mg PO DAILY Rx Instructions: 14 tablets = 7000 mg Referrals Referrals: David De La Fuente MD [Primary Care Provider] -
--- NOTE | 2022-12-15 23:20 | CT Scan Report ---
CT ANGIOGRAM OF THE CHEST; CT SCAN OF THE ABDOMEN AND PELVIS WITH IV CONTRAST CLINICAL HISTORY: Atypical chest pain. Dyspnea. Generalized abdominal pain. History of multiple myelo ma. COMPARISON STUDY: Chest CT dated 02/06/2019. Abdominal CT dated 12/31/2016. TECHNIQUE: Following the IV administration of 114 of Optiray 320, CT angiogram of the chest is perfor med from the upper abdomen to the thoracic inlet utilizing the pulmonary embolus protocol. Images are reviewed in the axial, sagittal, coronal planes. 3-D MIPS images are created and assessed. Subsequen tly, CT scan of the abdomen and pelvis was performed from the lung bases to the proximal femora. Imag es are reviewed in the axial, sagittal, and coronal planes. IV contrast was administered without comp lication. A dose lowering technique was utilized adhering to the principles of ALARA. CT DOSE: 584.62 mGy.cm FINDINGS: CHEST: Thyroid: Normal in size and heterogeneous in attenuation. Thoracic aorta: The thoracic aorta is normal in caliber and demonstrates standard 3-vessel arch anato my. No dissection is seen. Pulmonary vasculature: The pulmonary trunk is normal in caliber. There are no filling defects identif ied in the main, lobar, or segmental pulmonary arteries to indicate pulmonary embolus. Heart: The heart is mildly enlarged and without pericardial effusion. There are scattered coronary ar mert calcifications. Lungs and pleural spaces: There is mild emphysema. No airspace consolidation or pleural effusion is i dentified. Foci of parenchymal scarring are seen throughout both lungs. The trachea and central airwa ys are clear. Mediastinum: There is no mediastinal lymphadenopathy. Cecille: Clear. Axillae: There is no axillary lymphadenopathy. Bony thorax: The skeletal structures are heterogeneously osteopenic. Diffuse osteolytic bone disease is consistent with the known history of multiple myeloma. There are chronic/healed bilateral rib frac tures. ABDOMEN AND PELVIS: Liver: The contrast-enhanced liver is normal in size, contour, and attenuation. There is no intrahepa tic biliary ductal dilatation. The hepatic veins and portal veins are patent. Gallbladder: Unremarkable. Spleen: Normal in size and attenuation. Pancreas: Unremarkable. Adrenal glands: Unremarkable. Kidneys: The contrast enhanced kidneys are normal in size and without hydronephrosis. The kidneys enh ance symmetrically. A 15 mm cyst is noted on the right. Abdominal vasculature: The abdominal aorta is normal in course and caliber. Bowel: There is a focally dilated and fecalized loop of distal small bowel in the pelvis seen on axia l image #318. There is mild surrounding inflammation. There is an apparent transition point distal to this (axial image #285), and the distal small bowel is decompressed. The upstream small bowel loops are only modestly dilated. There is no pneumatosis intestinalis or portal venous gas. There is modera te colonic fecal retention. The appendix is not identified and reported surgically absent. Peritoneum: There is no intraperitoneal free air or abdominal ascites. Lymphadenopathy: None. Pelvic viscera: The bladder, uterus, and adnexa are normal as visualized. Skeletal structures: The skeletal structures are heterogeneously osteopenic. Diffuse osteolytic bone disease is consistent with a known history of multiple myeloma. There are chronic/healed right pubic ring fractures. There is a minimal chronic superior end plate compression deformity of L4. Mild lumbo sacral spondylosis is observed. Tarlov cysts are noted in the sacrum. IMPRESSION: 1. There is no evidence of pulmonary embolus in the main, lobar, or segmental pulmonary arteries. 2. Cardiomegaly and mild emphysema. 3. No airspace consolidation or pleural effusions. 4. There is a focally dilated and fecalized loop of distal small bowel in the pelvis as detailed abov e with surrounding inflammation. There is an apparent focal transition point distal to this loop, and the distal small bowel is decompressed. There is only mild dilatation of the proximal small bowel. A developing bowel obstruction is not excluded. There is no proximal transition point identified to enamorado ggest closed loop obstruction. Clinical correlation will be essential and surgical evaluation is advi sed. 5. Diffuse osteolytic bone disease is consistent with the known history of multiple myeloma. 6. Additional findings as above. ACT 112: Negative or not required by law. Electronically signed by: Jersey Burt M.D. 12/15/2022 11:18 PM
[2022-12-16 00:05] LABS: Appearance Urine Clear (Clear); Bacteria Urine Automated Negative (Negative); Bilirubin Urine Negative (Negative); Blood Urine Trace (Negative); Cast Urine Automated 0 /lpf (0-5); Color Urine Yellow; Epithelial Cell Urine Auto 0-5 /lpf (0-5); Glucose Urine UA Negative (Negative); Ketones Urine Negative (Negative); Leukocyte Esterase Urine Negative (Negative); Nitrite Urine Negative (Negative); Protein Urine Negative (Negative); RBC Urine Automated 0-4 /hpf (0-4); Urobilinogen Urine Negative (Negative); WBC Urine Automated 0 /hpf (0-5)
[2022-12-16] MEDS ORDERED: HYDROmorphone INJ 0.5 MG/0.5 ML SYR IV PRN (00:19)
[2022-12-16] MEDS ORDERED: LACTATED RINGER'S 1,000 ML IV ONE (00:25)
[2022-12-16] MEDS ORDERED: KETOROLAC TROMETHAMINE 15 MG/ML VIAL IV ONE (00:59)
--- NOTE | 2022-12-16 01:00 | History & Physical Report ---
Date of Service December 16, 2022 Assessment & Plan (1) Small bowel obstruction: Plan: Possible beginning SBO No prior history of abdominal surgeries Recent consumption of raw steak. Patient nontoxic. hypertension, stable hyperlipidemia, on statin Rx hx valvular heart disease (mild MR/TR, mitral valve prolapse ) hx TIA multiple myeloma ongoing chemotherapy Steroid-induced hyperglycemia rule out DM past tobacco abuse GMF Bowel rest Analgesia, IVF General surgery consult Re: Possible SBO NGT decompression if with emesis symptoms Check hemoglobin A1c DVT prophylaxis per Lovenox subcu Full code Text document was generated using [employer] voice recognition software. It may contain grammatical or spelling errors. Kindly contact undersigned for clarification of any documentation item in question. History of Present Illness Chief Complaint: Abdominal pain Primary Care Provider: Dr. Mcnally History obtained from patient and records. Medical history significant for hypertension, hyperlipidemia, valvular heart disease (mild MR/TR, mitral valve prolapse ), TIA, multiple myeloma ongoing chemotherapy, chronic interstitial cystitis as per records, past tobacco abuse. Few days history of achy abdominal pain going to the chest. Transient diarrhea symptoms. Consumption of raw steak at a gathering. Fever, no chills. Some nausea, no vomiting symptoms. Symptoms settled down for about a day. Recurrence noted today. Patient brought to the ER by . 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 EVERY OTHER WEEK 02/06/19 12/15/22 History lenalidomide 10 mg capsule 10 mg PO UD 02/06/19 12/15/22 History (Revlimid) metoprolol succinate 25 mg 25 mg PO QAM 02/06/19 12/15/22 History tablet,extended release 24 hr potassium chloride 10 mEq 10 meq PO QAM 02/06/19 12/15/22 History tablet,extended release valacyclovir 500 mg tablet 500 mg PO QAM 02/06/19 12/15/22 History betamethasone, augmented 0.05 % 1 applic topical BID PRN flares 12/15/22 12/15/22 History topical ointment rosuvastatin 10 mg tablet 10 mg PO QAM 12/15/22 12/15/22 History temazepam 30 mg capsule 30 mg PO HS PRN Sleep 12/15/22 12/15/22 History turmeric root extract 500 mg tablet 7,000 mg PO DAILY 12/15/22 12/15/22 History Past Med/Surg History Medical History Leaky heart valve Multiple myeloma Systolic murmur Family History Other No pertinent family history Social History Smoking Status: Former smoker Preferred Language: Turkmen Feels Safe at Home: Yes Review of Systems Review of Systems: As per HPI, all other systems reviewed and negative Physical Exam Physical Exam: GENERAL: Comfortable, pleasant, no respiratory distress SKIN: Normal color, warm HEENT: [place] palpebral conjunctivae, no ptosis, dry buccal mucosa NECK : Supple, no tenderness CHEST : CTA, no tenderness HEART : RRR, no obvious murmurs ABDOMEN: Some distention, central abdominal tenderness EXTREMITIES : No LE swelling/tenderness, no other conspicuous deformities noted NEUROLOGIC : Coherent, no facial asymmetry, no other gross focality Results & Data Results & Data ([facility] [place]) Vital Signs (Past 12 Hours) Vital Signs Temp Pulse Resp BP Pulse Ox O2 Del Method 12/16/22 00:50 69 14 100 12/16/22 00:41 72 17 100 12/16/22 00:41 148/86 H 12/16/22 00:40 72 12 100 12/16/22 00:30 71 15 98 12/16/22 00:20 72 19 100 12/16/22 00:10 73 20 100 12/16/22 00:00 67 18 100 12/15/22 23:50 60 16 99 12/15/22 23:40 62 21 100 12/15/22 23:31 68 14 12/15/22 23:25 72 19 99 12/15/22 22:06 Room Air 12/15/22 20:06 Room Air 12/15/22 20:10 36.5 C 79 18 135/85 100 Room Air Laboratory Results Laboratory Results WBC 5.00 K/ul (4.8-10.8) 12/15/22 20:00 RBC 4.01 M/uL (3.93-5.22) 12/15/22 20:00 Hgb 13.4 g/dl (12.0-16.0) 12/15/22 20:00 Hct 37.9 % (34.1-44.9) 12/15/22 20:00 MCV 94.5 fL (80.0-100.0) 12/15/22 20:00 MCH 33.4 pg (25.0-34.0) 12/15/22 20:00 MCHC 35.4 g/dL (32.0-36.0) 12/15/22 20:00 RDW Std Deviation 45.9 fL (36.4-46.3) 12/15/22 20:00 RDW Coeff of Kathy 13.2 % (11.5-14.5) 12/15/22 20:00 Plt Count 167 K/uL (130-400) 12/15/22 20:00 MPV 10.6 fL (9.4-12.3) 12/15/22 20:00 Immature Gran % (Auto) 0.4 % 12/15/22 20:00 Neut % (Auto) 83.4 % 12/15/22 20:00 Lymph % (Auto) 15.4 % 12/15/22 20:00 Toole % (Auto) 0.8 % 12/15/22 20:00 Eos % (Auto) 0.0 % 12/15/22 20:00 Baso % (Auto) 0.0 % 12/15/22 20:00 Neut # (Auto) 4.17 K/uL (1.4-6.5) 12/15/22 20:00 Lymph # (Auto) 0.77 K/uL (1.2-3.4) L 12/15/22 20:00 Toole # (Auto) 0.04 K/uL (0.24-0.82) L 12/15/22 20:00 Eos # (Auto) 0.00 K/uL (0-0.50) 12/15/22 20:00 Baso # (Auto) 0.00 K/uL (0-0.2) 12/15/22 20:00 Immature Gran # (Auto) 0.02 K/uL (0.00-0.02) 12/15/22 20:00 Sodium 136 mmol/L (136-145) 12/15/22 20:00 Potassium 3.7 mmol/L (3.5-5.1) 12/15/22 20:00 Chloride 102 mmol/L (98-107) 12/15/22 20:00 Carbon Dioxide 26 mmol/L (21-32) 12/15/22 20:00 Anion Gap 8 (3-11) 12/15/22 20:00 BUN 16 mg/dl (6-23) 12/15/22 20:00 Creatinine 0.69 mg/dl (0.6-1.2) 12/15/22 20:00 Est Cr Clr Drug Dosing 85.3 ml/min 12/15/22 20:00 Est GFR ( Amer) 108.1 ml/min 12/15/22 20:00 Est GFR (Non-Af Amer) 93.3 ml/min 12/15/22 20:00 BUN/Creatinine Ratio 23.2 (10-20) H 12/15/22 20:00 Glucose 132 mg/dl (70-99(Fasting)) H 12/15/22 20:00 Calcium 9.9 mg/dl (8.5-10.1) 12/15/22 20:00 Total Bilirubin 0.9 mg/dl (0.2-1.0) 12/15/22 20:00 AST 21 U/L (13-39) 12/15/22 20:00 ALT 23 U/L (7-52) 12/15/22 20:00 Alkaline Phosphatase 38 U/L (34-104) 12/15/22 20:00 Troponin I High Sens 2.6 pg/ml (0-14) 12/15/22 23:23 Total Protein 7.3 gm/dl (6.0-8.3) 12/15/22 20:00 Albumin 4.6 gm/dl (3.4-5.0) 12/15/22 20:00 Globulin 2.7 gm/dl (2.5-4.0) 12/15/22 20:00 Albumin/Globulin Ratio 1.7 (0.9-2) 12/15/22 20:00 Lipase 15 U/L (11-82) 12/15/22 20:00 Urine Color Yellow 12/15/22 Unknown Urine Appearance Clear (Clear) 12/15/22 Unknown Urine pH 7.0 (4.5-7.5) 12/15/22 Unknown Ur Specific [place] 1.030 (1.000-1.030) 12/15/22 Unknown Urine Protein Negative (Negative) 12/15/22 Unknown Urine Glucose (UA) Negative (Negative) 12/15/22 Unknown Urine Ketones Negative (Negative) 12/15/22 Unknown Urine Blood Trace (Negative) H 12/15/22 Unknown Urine Nitrite Negative (Negative) 12/15/22 Unknown Urine Bilirubin Negative (Negative) 12/15/22 Unknown Urine Urobilinogen Negative (Negative) 12/15/22 Unknown Ur Leukocyte Esterase Negative (Negative) 12/15/22 Unknown Urine WBC (Auto) 0 /hpf (0-5) 12/15/22 Unknown Urine RBC (Auto) 0-4 /hpf (0-4) 12/15/22 Unknown U Hyaline Cast (Auto) 0 /lpf (0-5) 12/15/22 Unknown U Epithel Cells (Auto) 0-5 /lpf (0-5) 12/15/22 Unknown Urine Bacteria (Auto) Negative (Negative) 12/15/22 Unknown Impressions Abdomen/Pelvis CT 12/15/22 22:19 CT ANGIOGRAM OF THE CHEST; CT SCAN OF THE ABDOMEN AND PELVIS WITH IV CONTRAST CLINICAL HISTORY: Atypical chest pain. Dyspnea. Generalized abdominal pain. History of multiple myeloma. COMPARISON STUDY: Chest CT dated 02/06/2019. Abdominal CT dated 12/31/2016. TECHNIQUE: Following the IV administration of 114 of Optiray 320, CT angiogram of the chest is performed from the upper abdomen to the thoracic inlet utilizing the pulmonary embolus protocol. Images are reviewed in the axial, sagittal, coronal planes. 3-D MIPS images are created and assessed. Subsequently, CT scan of the abdomen and pelvis was performed from the lung bases to the proximal femora. Images are reviewed in the axial, sagittal, and coronal planes. IV contrast was administered without complication. A dose lowering technique was utilized adhering to the principles of ALARA. CT DOSE: 584.62 mGy.cm FINDINGS: CHEST: Thyroid: Normal in size and heterogeneous in attenuation. Thoracic aorta: The thoracic aorta is normal in caliber and demonstrates standard 3-vessel arch anatomy. No dissection is seen. Pulmonary vasculature: The pulmonary trunk is normal in caliber. There are no filling defects identified in the main, lobar, or segmental pulmonary arteries to indicate pulmonary embolus. Heart: The heart is mildly enlarged and without pericardial effusion. There are scattered coronary artery calcifications. Lungs and pleural spaces: There is mild emphysema. No airspace consolidation or pleural effusion is identified. Foci of parenchymal scarring are seen throughout both lungs. The trachea and central airways are clear. Mediastinum: There is no mediastinal lymphadenopathy. Cecille: Clear. Axillae: There is no axillary lymphadenopathy. Bony thorax: The skeletal structures are heterogeneously osteopenic. Diffuse osteolytic bone disease is consistent with the known history of multiple myeloma. There are chronic/healed bilateral rib fractures. ABDOMEN AND PELVIS: Liver: The contrast-enhanced liver is normal in size, contour, and attenuation. There is no intrahepatic biliary ductal dilatation. The hepatic veins and portal veins are patent. Gallbladder: Unremarkable. Spleen: Normal in size and attenuation. Pancreas: Unremarkable. Adrenal glands: Unremarkable. Kidneys: The contrast enhanced kidneys are normal in size and without hydronephrosis. The kidneys enhance symmetrically. A 15 mm cyst is noted on the right. Abdominal vasculature: The abdominal aorta is normal in course and caliber. Bowel: There is a focally dilated and fecalized loop of distal small bowel in the pelvis seen on axial image #318. There is mild surrounding inflammation. There is an apparent transition point distal to this (axial image #285), and the distal small bowel is decompressed. The upstream small bowel loops are only modestly dilated. There is no pneumatosis intestinalis or portal venous gas. There is moderate colonic fecal retention. The appendix is not identified and reported surgically absent. Peritoneum: There is no intraperitoneal free air or abdominal ascites. Lymphadenopathy: None. Pelvic viscera: The bladder, uterus, and adnexa are normal as visualized. Skeletal structures: The skeletal structures are heterogeneously osteopenic. Diffuse osteolytic bone disease is consistent with a known history of multiple myeloma. There are chronic/healed right pubic ring fractures. There is a minimal chronic superior end plate compression deformity of L4. Mild lumbosacral spondylosis is observed. Tarlov cysts are noted in the sacrum. IMPRESSION: 1. There is no evidence of pulmonary embolus in the main, lobar, or segmental pulmonary arteries. 2. Cardiomegaly and mild emphysema. 3. No airspace consolidation or pleural effusions. 4. There is a focally dilated and fecalized loop of distal small bowel in the pelvis as detailed above with surrounding inflammation. There is an apparent focal transition point distal to this loop, and the distal small bowel is decompressed. There is only mild dilatation of the proximal small bowel. A developing bowel obstruction is not excluded. There is no proximal transition point identified to suggest closed loop obstruction. Clinical correlation will be essential and surgical evaluation is advised. 5. Diffuse osteolytic bone disease is consistent with the known history of multiple myeloma. 6. Additional findings as above. ACT 112: Negative or not required by law. Electronically signed by: Jersey Burt M.D. 12/15/2022 11:18 PM Chest CTA 12/15/22 22:19 CT ANGIOGRAM OF THE CHEST; CT SCAN OF THE ABDOMEN AND PELVIS WITH IV CONTRAST CLINICAL HISTORY: Atypical chest pain. Dyspnea. Generalized abdominal pain. History of multiple myeloma. COMPARISON STUDY: Chest CT dated 02/06/2019. Abdominal CT dated 12/31/2016. TECHNIQUE: Following the IV administration of 114 of Optiray 320, CT angiogram of the chest is performed from the upper abdomen to the thoracic inlet utilizing the pulmonary embolus protocol. Images are reviewed in the axial, sagittal, coronal planes. 3-D MIPS images are created and assessed. Subsequently, CT scan of the abdomen and pelvis was performed from the lung bases to the proximal femora. Images are reviewed in the axial, sagittal, and coronal planes. IV contrast was administered without complication. A dose lowering technique was utilized adhering to the principles of ALARA. CT DOSE: 584.62 mGy.cm FINDINGS: CHEST: Thyroid: Normal in size and heterogeneous in attenuation. Thoracic aorta: The thoracic aorta is normal in caliber and demonstrates standard 3-vessel arch anatomy. No dissection is seen. Pulmonary vasculature: The pulmonary trunk is normal in caliber. There are no filling defects identified in the main, lobar, or segmental pulmonary arteries to indicate pulmonary embolus. Heart: The heart is mildly enlarged and without pericardial effusion. There are scattered coronary artery calcifications. Lungs and pleural spaces: There is mild emphysema. No airspace consolidation or pleural effusion is identified. Foci of parenchymal scarring are seen throughout both lungs. The trachea and central airways are clear. Mediastinum: There is no mediastinal lymphadenopathy. Cecille: Clear. Axillae: There is no axillary lymphadenopathy. Bony thorax: The skeletal structures are heterogeneously osteopenic. Diffuse osteolytic bone disease is consistent with the known history of multiple myeloma. There are chronic/healed bilateral rib fractures. ABDOMEN AND PELVIS: Liver: The contrast-enhanced liver is normal in size, contour, and attenuation. There is no intrahepatic biliary ductal dilatation. The hepatic veins and portal veins are patent. Gallbladder: Unremarkable. Spleen: Normal in size and attenuation. Pancreas: Unremarkable. Adrenal glands: Unremarkable. Kidneys: The contrast enhanced kidneys are normal in size and without hydronephrosis. The kidneys enhance symmetrically. A 15 mm cyst is noted on the right. Abdominal vasculature: The abdominal aorta is normal in course and caliber. Bowel: There is a focally dilated and fecalized loop of distal small bowel in the pelvis seen on axial image #318. There is mild surrounding inflammation. There is an apparent transition point distal to this (axial image #285), and the distal small bowel is decompressed. The upstream small bowel loops are only modestly dilated. There is no pneumatosis intestinalis or portal venous gas. There is moderate colonic fecal retention. The appendix is not identified and reported surgically absent. Peritoneum: There is no intraperitoneal free air or abdominal ascites. Lymphadenopathy: None. Pelvic viscera: The bladder, uterus, and adnexa are normal as visualized. Skeletal structures: The skeletal structures are heterogeneously osteopenic. Diffuse osteolytic bone disease is consistent with a known history of multiple myeloma. There are chronic/healed right pubic ring fractures. There is a minimal chronic superior end plate compression deformity of L4. Mild lumbosacral spondylosis is observed. Tarlov cysts are noted in the sacrum. IMPRESSION: 1. There is no evidence of pulmonary embolus in the main, lobar, or segmental pulmonary arteries. 2. Cardiomegaly and mild emphysema. 3. No airspace consolidation or pleural effusions. 4. There is a focally dilated and fecalized loop of distal small bowel in the pelvis as detailed above with surrounding inflammation. There is an apparent focal transition point distal to this loop, and the distal small bowel is decompressed. There is only mild dilatation of the proximal small bowel. A developing bowel obstruction is not excluded. There is no proximal transition point identified to suggest closed loop obstruction. Clinical correlation will be essential and surgical evaluation is advised. 5. Diffuse osteolytic bone disease is consistent with the known history of multiple myeloma. 6. Additional findings as above. ACT 112: Negative or not required by law. Electronically signed by: Jersey Burt M.D. 12/15/2022 11:18 PM Diagnostic Findings EKG as per my interpretation :Rate 65, NSR, normal axis, T wave abnormality septal leads
[2022-12-16] MEDS ORDERED: LORazepam 0.5 MG TAB PO PRN (01:04)
[2022-12-16] MEDS: ACETAMINOPHEN 325 MG TAB PO PRN ×2 (05:46→20:10)
[2022-12-16] MEDS: traMADol HCL 50 MG TABLET PO PRN ×2 (05:47→11:01)
[2022-12-16] MEDS: PROMETHAZINE HCL 6.25 MG in SODIUM CHLORIDE 0.9% 50 ML IV PRN (05:57)
[2022-12-16 06:42] LABS: Hematocrit (blood only) 36.1 % (34.1-44.9); Hemoglobin 12.5 g/dl (12.0-16.0); Immature Granulocytes # (auto) 0.04 K/uL (0.00-0.02); Immature Granulocytes % (auto) 0.6 %; Lymphocytes # (auto) 0.75 K/uL (1.2-3.4); Lymphocytes % (auto) 10.6 %; Mean Corpuscular Hemoglobin 33.3 pg (25.0-34.0); Mean Corpuscular Hgb Conc 34.6 g/dL (32.0-36.0); Mean Corpuscular Volume 96.3 fL (80.0-100.0); Mean Platelet Volume 11.1 fL (9.4-12.3); Monocytes # (auto) 0.52 K/uL (0.24-0.82); Monocytes % (auto) 7.3 %; Neutrophils # (auto) 5.79 K/uL (1.4-6.5); Neutrophils % (auto) 81.5 %; Platelet Count 131 K/uL (130-400); RBC Morphology Unremarkable; RDW Coefficient of Variation 13.4 % (11.5-14.5); RDW Standard Deviation 47.8 fL (36.4-46.3); Red Blood Count 3.75 M/uL (3.93-5.22)
[2022-12-16 07:10] LABS: BUN Creatinine Ratio 28.6 (10-20); Calcium 9.2 mg/dl (8.5-10.1); Creatinine Clr Calc Pharmacy 93.4 ml/min; Est GFR (African American) 111.4 ml/min; Est GFR (Non-African American) 96.1 ml/min
[2022-12-16 08:29] LABS: Estimated Average Glucose 105 mg/dl; Hemoglobin A1C 5.3 % (4.5-5.6)
--- NOTE | 2022-12-16 08:59 | Surgery Consultation ---
Date of Consultation December 16, 2022 Assessment & Plan (1) Small bowel obstruction: This is a 62yF with a PMH of multiple melanoma on chemo, benign brain tumor, history of appendectomy, who presents to the [facility] ED on 12/15/22 with complaints of abdominal pain and nausea which started on Thursday. In the ED a CT a/p was performed that revealed a focally dilated and fecalized loop of distal small bowel in the pelvis as detailed above with surrounding inflammation. There is an apparent focal transition point distal to this loop, and the distal small bowel is decompressed and cannot rule out a developing small bowel obstruction. Patients vital signs are stable. WBC 7.1, Cr: 0.6, Hbg 12.5. On exam abdomen is soft, some mild generalize discomfort to palpation across mid and lower abdomen. Patient without history of SBO in the past. For now would give patient a trial of conservative measures. Keep NPO with IVF. Can hold off on NGT unless develops episodes of worsening nausea with vomiting. If no improvement by tomorrow may consider contrast study for further evaluation. Supervising Physician Co-Signing Physician Notes I personally saw and examined the patient with Modesta Latif PA-C and agree with the assessment and plan. 62-year-old female with history of multiple myeloma, partial small bowel obstruction CT images and results personally viewed by myself, she has a gradual tapering of her small bowel to some fecalization in the distal ileum and has a decent amount of stool burden throughout the colon We will treat her as a small bowel obstruction and keep her n.p.o. with IV fluids We will plan on a small bowel follow-through tomorrow if she has no meaningful return of bowel function by that time She would be at increased risk for complications due to her multiple myeloma and active chemotherapy Will follow History of Present Illness Attending Physician: Virgilio Ingram MD History of Present Illness This is a 62yF with a PMH of multiple melanoma on chemo, benign brain tumor, history of appendectomy, who presents to the [facility] ED on 12/15/22 with complaints of abdominal pain and nausea. Patient states her symptoms started Thursday after eating a couple slices of raw streak. She immediately developed diarrhea. Over the next 24-48 hours she developed abdominal discomfort that radiated to the left side of her back. This was associated with nausea. She thought it was related to gas pains, however the pain became worse in severity which prompted her to come into the ER for further evaluation. In the ED a CT a/p was performed that revealed a focally dilated and fecalized loop of distal small bowel in the pelvis as detailed above with surrounding inflammation. There is an apparent focal transition point distal to this loop, and the distal small bowel is decompressed and cannot rule out a developing small bowel obstruction. The patient says she has stopped passing flatus and last BM was 2 days ago. No f/c, cp/sob, or vomiting. Allergies Allergy/AdvReac Type Severity Reaction Status Date / Time No Known Allergies Allergy Unverified 02/06/19 07:04 Home Medications Medication Instructions Recorded Confirmed Type aspirin 81 mg tablet,delayed 81 mg PO DAILY 02/06/19 12/15/22 History release (Sarah Low Dose Aspirin) dexamethasone 4 mg tablet 20 mg PO . EVERY OTHER WEEK 02/06/19 12/15/22 History lenalidomide 10 mg capsule 10 mg PO UD 02/06/19 12/15/22 History (Revlimid) metoprolol succinate 25 mg 25 mg PO QAM 02/06/19 12/15/22 History tablet,extended release 24 hr potassium chloride 10 mEq 10 meq PO QAM 02/06/19 12/15/22 History tablet,extended release valacyclovir 500 mg tablet 500 mg PO QAM 02/06/19 12/15/22 History betamethasone, augmented 0.05 % 1 applic topical BID PRN flares 12/15/22 3 History topical ointment rosuvastatin 10 mg tablet 10 mg PO QAM 12/15/22 12/15/22 History temazepam 30 mg capsule 30 mg PO HS PRN Sleep 12/15/22 12/15/22 History turmeric root extract 500 mg tablet 7,000 mg PO DAILY 12/15/22 12/15/22 History Patient History Medical History Leaky heart valve Multiple myeloma Systolic murmur Family History Other No pertinent family history Social History Smoking Status: Former smoker Preferred Language: Maltese Feels Safe at Home: Yes Review of Systems Constitutional: no fever and no chills Respiratory: no dyspnea Gastrointestinal: + abdominal pain, + nausea and + diarrhea/loose stools (diarrhea initially, last BM 2 days ago); no vomiting Genitourinary: no problem reported Physical Exam Physical Exam: awake/alert, pleasant Constitutional: well developed and well nourished; no acute distress Respiratory: normal respiratory effort Gastrointestinal (Abdomen): Inspection/Auscultation: + abdominal surgical scar (from prior appendectomy ); abdomen not distended Percussion/Palpation: + abdomen tender (generalized discomfort to palpation, worse across lower/mid abdomen) and abdomen soft Results & Data ([facility]) Vital Signs (Past 12 Hours) Vital Signs Pulse Pulse Resp BP BP Pulse Ox O2 Del Method 12/16/22 07:00 75 18 130/71 100 Room Air 12/16/22 06:40 82 19 100 12/16/22 06:30 73 15 99 12/16/22 06:30 139/70 12/16/22 06:20 80 21 98 12/16/22 06:10 74 23 100 12/16/22 06:00 72 13 100 12/16/22 06:00 134/73 12/16/22 05:50 68 19 97 12/16/22 05:40 75 25 H 12/16/22 05:30 79 20 12/16/22 05:30 125/71 12/16/22 05:20 75 18 12/16/22 05:10 79 19 12/16/22 05:00 78 18 12/16/22 05:00 138/69 12/16/22 04:50 74 17 12/16/22 04:40 72 19 12/16/22 04:30 75 22 12/16/22 04:30 128/71 12/16/22 04:20 83 24 12/16/22 04:10 72 15 12/16/22 04:00 76 17 100 12/16/22 04:00 131/72 12/16/22 03:50 76 17 12/16/22 03:40 81 17 12/16/22 03:30 76 14 12/16/22 03:30 117/64 12/16/22 03:20 74 19 12/16/22 03:10 74 18 12/16/22 03:00 71 15 12/16/22 03:00 130/67 12/16/22 02:50 70 14 12/16/22 02:40 71 13 12/16/22 02:30 69 13 12/16/22 02:30 122/65 12/16/22 02:20 69 13 12/16/22 02:10 75 14 12/16/22 02:00 68 15 12/16/22 02:00 132/76 12/16/22 01:50 67 16 12/16/22 01:40 68 16 12/16/22 01:30 66 17 100 12/16/22 01:30 140/88 12/16/22 01:20 68 19 100 12/16/22 01:10 71 17 99 12/16/22 01:00 68 17 99 12/16/22 01:00 137/89 12/16/22 04:00 Room Air 12/16/22 02:00 Room Air 12/16/22 01:35 Room Air 12/16/22 00:50 69 14 100 12/16/22 00:41 72 17 100 12/16/22 00:41 148/86 H 12/16/22 00:40 72 12 100 12/16/22 00:30 71 15 98 12/16/22 00:20 72 19 100 12/16/22 00:10 73 20 100 12/16/22 00:00 67 18 100 12/15/22 23:50 60 16 99 12/15/22 23:40 62 21 100 12/15/22 23:31 68 14 12/15/22 23:25 72 19 99 12/15/22 22:06 Room Air Diagnostic Findings CT ANGIOGRAM OF THE CHEST; CT SCAN OF THE ABDOMEN AND PELVIS WITH IV CONTRAST CLINICAL HISTORY: Atypical chest pain. Dyspnea. Generalized abdominal pain. History of multiple myeloma. COMPARISON STUDY: Chest CT dated 02/06/2019. Abdominal CT dated 12/31/2016. TECHNIQUE: Following the IV administration of 114 of Optiray 320, CT angiogram of the chest is performed from the upper abdomen to the thoracic inlet utilizing the pulmonary embolus protocol. Images are reviewed in the axial, sagittal, coronal planes. 3-D MIPS images are created and assessed. Subsequently, CT scan of the abdomen and pelvis was performed from the lung bases to the proximal femora. Images are reviewed in the axial, sagittal, and coronal planes. IV contrast was administered without complication. A dose lowering technique was utilized adhering to the principles of ALARA. CT DOSE: 584.62 mGy.cm FINDINGS: CHEST: Thyroid: Normal in size and heterogeneous in attenuation. Thoracic aorta: The thoracic aorta is normal in caliber and demonstrates standard 3-vessel arch anatomy. No dissection is seen. Pulmonary vasculature: The pulmonary trunk is normal in caliber. There are no filling defects identified in the main, lobar, or segmental pulmonary arteries to indicate pulmonary embolus. Heart: The heart is mildly enlarged and without pericardial effusion. There are scattered coronary artery calcifications. Lungs and pleural spaces: There is mild emphysema. No airspace consolidation or pleural effusion is identified. Foci of parenchymal scarring are seen throughout both lungs. The trachea and central airways are clear. Mediastinum: There is no mediastinal lymphadenopathy. Cecille: Clear. Axillae: There is no axillary lymphadenopathy. Bony thorax: The skeletal structures are heterogeneously osteopenic. Diffuse osteolytic bone disease is consistent with the known history of multiple myeloma. There are chronic/healed bilateral rib fractures. ABDOMEN AND PELVIS: Liver: The contrast-enhanced liver is normal in size, contour, and attenuation. There is no intrahepatic biliary ductal dilatation. The hepatic veins and portal veins are patent. Gallbladder: Unremarkable. Spleen: Normal in size and attenuation. Pancreas: Unremarkable. Adrenal glands: Unremarkable. Kidneys: The contrast enhanced kidneys are normal in size and without hydronephrosis. The kidneys enhance symmetrically. A 15 mm cyst is noted on the right. Abdominal vasculature: The abdominal aorta is normal in course and caliber. Bowel: There is a focally dilated and fecalized loop of distal small bowel in the pelvis seen on axial image #318. There is mild surrounding inflammation. There is an apparent transition point distal to this (axial image #285), and the distal small bowel is decompressed. The upstream small bowel loops are only modestly dilated. There is no pneumatosis intestinalis or portal venous gas. There is moderate colonic fecal retention. The appendix is not identified and reported surgically absent. Peritoneum: There is no intraperitoneal free air or abdominal ascites. Lymphadenopathy: None. Pelvic viscera: The bladder, uterus, and adnexa are normal as visualized. Skeletal structures: The skeletal structures are heterogeneously osteopenic. Diffuse osteolytic bone disease is consistent with a known history of multiple myeloma. There are chronic/healed right pubic ring fractures. There is a minimal chronic superior end plate compression deformity of L4. Mild lumbosacral spondylosis is observed. Tarlov cysts are noted in the sacrum. IMPRESSION: 1. There is no evidence of pulmonary embolus in the main, lobar, or segmental pulmonary arteries. 2. Cardiomegaly and mild emphysema. 3. No airspace consolidation or pleural effusions. 4. There is a focally dilated and fecalized loop of distal small bowel in the pelvis as detailed above with surrounding inflammation. There is an apparent focal transition point distal to this loop, and the distal small bowel is decompressed. There is only mild dilatation of the proximal small bowel. A developing bowel obstruction is not excluded. There is no proximal transition point identified to suggest closed loop obstruction. Clinical correlation will be essential and surgical evaluation is advised. 5. Diffuse osteolytic bone disease is consistent with the known history of multiple myeloma. 6. Additional findings as above. ACT 112: Negative or not required by law. Electronically signed by: Jersey Burt M.D. 12/15/2022 11:18 PM PG Care Time/CCT Total # of Minutes Spent Total Time Spent with Patient: Total time spent is greater than 50% in coordination of care (as documented) at patient's floor/unit and/or counseling patient: Coding Level of Care Code INP/OBS CONSULT LVL 3, 45 MIN Diagnoses Small bowel obstruction K56.609
--- NOTE | 2022-12-16 09:11 | XRay Report ---
XR KUB/Abdomen 1 view CLINICAL HISTORY: ff up sbo TECHNIQUE: 1 view of the abdomen was obtained. Comparison: Comparison is made to CT abdomen pelvis 12/15/2022 FINDINGS: Lung bases are unremarkable. The osseous structures are grossly unremarkable. Gas-distended loops of small bowel are seen none measuring greater than 30 mm. A moderate amount of stool is noted within th e large bowel. IMPRESSION: No definite small bowel obstruction. Multiple nondistended gaseous loops of small bowel are seen. ACT 112: Negative or not required by law. Electronically signed by: Fernando Krishnamurthy M.D. 12/16/2022 9:09 AM
[2022-12-16] MEDS: valACYclovir HCL 500 MG TABLET PO SCH (10:29)
[2022-12-16] MEDS: ASPIRIN 81 MG ECTAB PO SCH (10:29)
[2022-12-16] MEDS: ENOXAPARIN INJ 30 MG/0.3 ML SYR SQ SCH (10:29)
[2022-12-16] MEDS: METOPROLOL SUCC 25MG EXT REL TAB PO SCH (10:30)
[2022-12-16] MEDS: ROSUVASTATIN CALCIUM 10 MG TAB PO SCH (10:30)
[2022-12-16] MEDS: KETOROLAC TROMETHAMINE 15 MG/ML VIAL IV PRN (12:36)
[2022-12-16] MEDS: LACTATED RINGER'S 1,000 ML IV SCH ×2 (16:27→20:49)
[2022-12-16] MEDS: TEMAZEPAM 15 MG CAPSULE PO PRN (21:49)
[2022-12-16] MEDS: HYDROmorphone INJ 0.5 MG/0.5 ML SYR IV PRN (21:49)
[2022-12-17] MEDS: traMADol HCL 50 MG TABLET PO PRN ×2 (07:43→16:56)
[2022-12-17] MEDS: METOPROLOL SUCC 25MG EXT REL TAB PO SCH (08:43)
[2022-12-17] MEDS: ENOXAPARIN INJ 30 MG/0.3 ML SYR SQ SCH (08:43)
[2022-12-17] MEDS: ASPIRIN 81 MG ECTAB PO SCH (08:44)
[2022-12-17] MEDS: ROSUVASTATIN CALCIUM 10 MG TAB PO SCH (08:44)
[2022-12-17] MEDS: valACYclovir HCL 500 MG TABLET PO SCH (09:13)
--- NOTE | 2022-12-17 09:54 | XRay Report ---
XR KUB/Abdomen 1 view CLINICAL HISTORY: eval SBO TECHNIQUE: 1 view of the abdomen was obtained. Comparison: Comparison is made to abdomen radiograph 12/16/[address] abdomen pelvis 12/15/2022 FINDINGS: Lung bases are unremarkable. The osseous structures are grossly unremarkable. Multiple gas-distended loops of small bowel measuring up to 34 mm in diameter, increased from prior exam. The colon appears underdistended. IMPRESSION: Multiple gas distended loops of bowel are more prominent than in prior exam, suggestive of developing /worsening small bowel obstruction. ACT 112: Negative or not required by law. Electronically signed by: Fernando Krishnamurthy M.D. 12/17/2022 9:53 AM
--- NOTE | 2022-12-17 10:04 | Surgery Progress Note ---
Date of Service December 17, 2022 Assessment & Plan (1) Small bowel obstruction: Plan: Patient here with SBO, history of appendectomy, multiple myeloma on chemo Pain somewhat improved, however no BM/flatus. Burping some KUB today shows evidence of worsening SBO Will obtain SBFT for further evaluation Keep NPO with IVF for now. Will follow up on imaging Admission and Anticipated Discharge Date Admission Date: December 16, 2022 Supervising Physician Co-Signing Physician Notes I personally saw and examined the patient with Modesta Latif PA-C and agree with the assessment and plan. 62-year-old female with history of multiple myeloma, partial small bowel obstruction She still is not passing any gas or any bowel movements KUB still reveals some dilated bowel We will get a small bowel follow-through today Subjective Patient feeling a bit better. No n/v. She is not yet passing flatus or BM Physical Exam Physical Exam: awake/alert Respiratory: normal respiratory effort Gastrointestinal (Abdomen): Percussion/Palpation: + abdomen tender (mid abdominal discomfort) and abdomen soft Results & Data ([facility]) Vital Signs (Past 12 Hours) Vital Signs Temp Pulse Resp BP Pulse Ox O2 Del Method 12/17/22 07:49 36.6 C 12/17/22 07:15 38.1 C H 74 16 108/66 98 Room Air PG Care Time/CCT Total # of Minutes Spent Total Time Spent with Patient: Total time spent is greater than 50% in coordination of care (as documented) at patient's floor/unit and/or counseling patient: Coding Level of Care Code 47897 SUB INP/OBS CARE 125MIN Diagnoses Small bowel obstruction K56.609
[2022-12-17] MEDS: HYDROmorphone INJ 0.5 MG/0.5 ML SYR IV PRN (11:42)
[2022-12-17] MEDS: LACTATED RINGER'S 1,000 ML IV SCH (11:45)
[2022-12-17] MEDS: PROMETHAZINE HCL 6.25 MG in SODIUM CHLORIDE 0.9% 50 ML IV PRN (11:59)
--- NOTE | 2022-12-17 12:57 | Hospitalist Progress Note ---
Date of Service December 17, 2022 Assessment & Plan (1) Small bowel obstruction: Plan: SBO hx of appendectomy Recent consumption of raw steak. Patient nontoxic. Current multiple myeloma ongoing chemotherapy Bowel rest Analgesia, IVF General surgery consult Re: SBO NGT decompression if with emesis symptoms Plan for small bowel follow-through today Chronic conditions hypertension, stable hyperlipidemia, on statin Rx hx valvular heart disease (mild MR/TR, mitral valve prolapse ) hx TIA multiple myeloma ongoing chemotherapy Steroid-induced hyperglycemia rule out DM , A1c 5.3% past tobacco abuse DVT prophylaxis per Lovenox subcu Full code Admission and Anticipated Discharge Date Admission Date: December 16, 2022 Subjective Patient seen in follow-up of SBO Currently sitting up in bed, in no acute distress No fevers chills chest pain shortness of breath Continues to have abdominal discomfort, especially lower abdomen, radiating to her back No nausea vomiting. She is not passing flatus, and did not have any BM yet. Seen by surgery, plan for small bowel follow-through today Review of Systems Review of Systems: All systems reviewed & are unremarkable except as noted in Subjective Physical Exam Physical Exam: GENERAL: WD/WN F i n NAD SKIN: [place] l color, warm KARY NT: NC/AT, EOMI, P ERRL, Benicia palpebr al conjunctivae, n o ptosis NECK : S upple, no tenderne ss CHEST : CTA, n o tenderness HEAR T : RRR ABDOMEN: +central/lower abd ominal tenderness, sluggish bowel so unds,some distenti on EXTREMITIES : No LE swelling/ten derness, moves ext remities NEUROLOG IC : alert and stephen ented, no facial a symmetry,speech fl uent, moves extrem ities Results & Data Results & Data ([facility]) Vital Signs (Past 12 Hours) Vital Signs Temp Pulse Resp BP Pulse Ox O2 Del Method 12/17/22 07:49 36.6 C 12/17/22 07:15 38.1 C H 74 16 108/66 98 Room Air Medications Administered Current Inpatient Medications Acetaminophen (Acetaminophen 325 Mg Tab) 650 mg PO Q6H PRN PRN Reason: Fever/pain Stop: 01/15/23 01:03 Last Admin: 12/16/22 20:10 Dose: 650 mg Aspirin (Aspirin 81 Mg Ectab) 81 mg PO DAILY [facility]MEN Stop: 01/15/23 08:59 Last Admin: 12/17/22 08:44 Dose: 81 mg Enoxaparin Sodium (Enoxaparin Inj 30 Mg/0.3 Ml Syr) 30 mg SQ QAM [facility] Stop: 01/15/23 08:59 Last Admin: 12/17/22 08:43 Dose: 30 mg Hydromorphone HCl (Hydromorphone Inj 0.5 Mg/0.5 Ml Syr) 0.25 mg IV Q8H PRN PRN Reason: Pain Stop: 12/30/22 21:33 Last Admin: 12/17/22 11:42 Dose: 0.25 mg Promethazine HCl 6.25 mg/ (Sodium Chloride) 50.25 mls @ 201 mls/hr IV Q6H PRN PRN Reason: Nausea And Vomiting Stop: 01/15/23 01:03 Last Infusion: 12/17/22 12:14 Dose: Infused Lactated Ringer's (Lr) 1,000 mls @ 75 mls/hr IV .[id number] [facility] Stop: 01/15/23 13:59 Last Admin: 12/17/22 11:45 Dose: 75 mls/hr Ketorolac Tromethamine (Ketorolac Tromethamine 15 Mg/Ml Vial) 15 mg IV Q6H PRN PRN Reason: Pain Stop: 12/21/22 01:03 Last Admin: 12/16/22 12:36 Dose: 15 mg Lorazepam (Lorazepam 0.5 Mg Tab) 0.25 mg PO TID PRN PRN Reason: Anxiety Stop: 01/15/23 01:03 Metoprolol Succinate (Metoprolol Succ 25mg Ext Rel Tab) 25 mg PO [facility] Stop: 01/15/23 08:59 Last Admin: 12/17/22 08:43 Dose: 25 mg Rosuvastatin Calcium (Rosuvastatin Calcium 10 Mg Tab) [facility] [place]: 01/15/23 08:59 Last Admin: 12/17/22 08:44 Dose: 10 mg Temazepam (Temazepam 15 Mg Capsule) 30 mg PO HS PRN PRN Reason: Sleep Stop: 01/15/23 01:34 Last Admin: 12/16/22 21:49 Dose: 30 mg Tramadol HCl (Tramadol Hcl 50 Mg Tablet) 25 mg PO Q4H PRN PRN Reason: Pain Stop: 01/15/23 01:03 Last Admin: 12/17/22 07:43 Dose: 25 mg Valacyclovir HCl (Valacyclovir Hcl 500 Mg Tablet) 500 mg PO [facility] Stop: 01/15/23 08:59 Last Admin: 12/17/22 09:13 Dose: 500 mg
[2022-12-17] MEDS: KETOROLAC TROMETHAMINE 15 MG/ML VIAL IV PRN ×2 (14:20→22:26)
[2022-12-17] MEDS ORDERED: ONDANSETRON INJ 2 MG/ML 2 ML VIAL IV STA (17:56)
--- NOTE | 2022-12-17 20:51 | Fluoroscopy Report ---
KUB/small bowel follow through CLINICAL HISTORY: Possible bowel obstruction. Abdominal distention. COMPARISON STUDY: Abdomen and pelvis CT 12/15/2022. FINDINGS: Initial images demonstrated contrast within the stomach and proximal to mid small bowel. Th ere are multiple dilated loops of small bowel measuring up to 4 cm in diameter. This has progressed i n the interval. Images were obtained over a 10 hour time interval. Contrast did not reach the distal small bowel or colon. Therefore, this is consistent with a high-grade small bowel obstruction. The tr ansition point was not clearly identified on this study due to the slow transit of contrast. IMPRESSION: Multiple dilated loops of small bowel again seen within the abdomen which has progressed in the interval. Contrast did not reach the distal small bowel or colon. Therefore, this is consisten t with a high-grade small bowel obstruction. Surgical consultation advised ACT 112: Negative or not required by law. Electronically signed by: Kristofer Lagos M.D. 12/17/2022 8:49 PM
[2022-12-17] MEDS ORDERED: PROMETHAZINE HCL 12.5 MG in SODIUM CHLORIDE 0.9% 50 ML IV STA (21:00)
[2022-12-17] MEDS ORDERED: HYDROmorphone INJ 0.5 MG/0.5 ML SYR IV PRN (21:01)
[2022-12-17] MEDS ORDERED: PROMETHAZINE HCL 12.5 MG in SODIUM CHLORIDE 0.9% 50 ML IV PRN (21:03)
[2022-12-17] MEDS ORDERED: LORazepam 2 MG/1 ML VIAL IV STA (21:09)
[2022-12-17] MEDS ORDERED: LORazepam 2 MG/1 ML VIAL ONE (21:12)
--- NOTE | 2022-12-17 21:37 | Communication Note ---
Date of Service: December 17, 2022 I was contacted by hospital service that patient had a small bowel follow- through earlier today that demonstrated a high-grade small bowel obstruction. Due to this finding an NG tube was ordered and multiple attempts were made by dayshift nursing without success to place an NG tube. The patient then refused further attempts at NG tube placement. I was notified by the hospitalist service the patient was having further emesis. I was contacted at approximately 8:56 PM. I arrived at the patient's bedside within 5 minutes. At the time of my arrival the patient had just had approximately 600 cc emesis of bilious material. I discussed with the patient the findings of her small bowel follow-through and recommended that additional attempts be made to place an NG tube. The patient was initially reluctant to agree to this modality. I did have a further discussion with the patient. She subsequently agreed to have this clinician placed an NG tube. Prior to placing the NG tube the patient was administered 2 mg of IV Ativan. An NG tube was then placed without difficulty by this clinician. Almost immediately after NG tube was placed approximately 1000 cc of bilious material was retrieved. A KUB was performed that showed NG tube was in good position. KUB is ordered for tomorrow and patient is currently n.p.o. and receiving intravenous fluids 100 cc/h
--- NOTE | 2022-12-17 22:37 | Communication Note ---
Date of Service: December 17, 2022 Patient was revisited at bedside following NG tube placement. Her vitals were reviewed and she remains normotensive without tachycardia. She has been a febrile and her pulse ox is 98% on room air I discussed with nursing staff and patient has had approximately 1800 cc drained from her NG tube since placement. On exam the patient's abdomen is soft and nonrigid. There is minimal tenderness to palpation and her abdomen is notably minimally distended. Upon questioning the patient noted that her abdominal discomfort and nausea has markedly improved since NG tube placed.
[2022-12-18] MEDS: LACTATED RINGER'S 1,000 ML IV SCH ×3 (01:10→23:35)
--- NOTE | 2022-12-18 05:40 | Electrocardiogram Report ---
Test Reason : Blood Pressure : / mmHG Vent. Rate : 063 BPM Atrial Rate : 063 BPM P-R Int : 122 ms QRS Dur : 092 ms QT Int : 450 ms P-R-T Axes : 054 069 067 degrees QTc Int : 460 ms Normal sinus rhythm Normal ECG When compared with ECG of 06-FEB-2019 05:33, ST elevation now present in Inferior leads ST elevation now present in Lateral leads Confirmed by Bobby Godoy ([id number]) on 12/18/2022 5:40:12 AM Referred By: REFERRED SELF Confirmed By:Bobby Godoy
--- NOTE | 2022-12-18 05:53 | Communication Note ---
Date of Service: December 18, 2022 Patient was revisited again this morning. She again is noted be normotensive without tachycardia and afebrile. When questioned the patient notes that her abdominal pain has again markedly improved and she has not had any further emesis since NG tube placement. On exam the patient's abdomen is soft and nonrigid. It is minimally distended. Bowel sounds are hypoactive to absent. There is minimal tenderness to palpation of the abdomen. Patient's NG tube continues to drain green/bilious material.
--- NOTE | 2022-12-18 06:05 | Electrocardiogram Report ---
Test Reason : Blood Pressure : / mmHG Vent. Rate : 061 BPM Atrial Rate : 061 BPM P-R Int : 160 ms QRS Dur : 096 ms QT Int : 434 ms P-R-T Axes : 039 046 053 degrees QTc Int : 436 ms Normal sinus rhythm Normal ECG When compared with ECG of 15-DEC-2022 23:15, No significant change was found Confirmed by Bobby Godoy ([id number]) on 12/18/2022 6:05:01 AM Referred By: REFERRED SELF Confirmed By:Bobby Godoy
[2022-12-18 07:18] LABS: Hematocrit (blood only) 38.6 % (34.1-44.9); Hemoglobin 13.7 g/dl (12.0-16.0); Mean Corpuscular Hgb Conc 35.5 g/dL (32.0-36.0); Mean Corpuscular Volume 95.8 fL (80.0-100.0); Mean Platelet Volume 11.5 fL (9.4-12.3); Platelet Count 116 K/uL (130-400); RDW Coefficient of Variation 13.7 % (11.5-14.5); RDW Standard Deviation 48.8 fL (36.4-46.3); Red Blood Count 4.03 M/uL (3.93-5.22); White Blood Count 2.22 K/ul (4.8-10.8)
[2022-12-18 07:45] LABS: Calcium 8.5 mg/dl (8.5-10.1); Magnesium 1.8 mg/dl (1.7-2.4); Potassium 3.7 mmol/L (3.5-5.1)
[2022-12-18 07:51] LABS: BUN Creatinine Ratio 41.5 (10-20); Creatinine Clr Calc Pharmacy 71.8 ml/min; Est GFR (African American) 88.9 ml/min; Est GFR (Non-African American) 76.7 ml/min; Phosphorus 5.1 mg/dl (2.5-4.9)
--- NOTE | 2022-12-18 08:28 | Surgery Progress Note ---
Date of Service December 18, 2022 Assessment & Plan (1) Small bowel obstruction: Plan: Small bowel follow-through images and results personally viewed by myself, she does have worsening dilated bowel with no contrast passing to the small bowel or colon She did have 2 bowel movements this morning after that study was read We will check a KUB this morning to see the small bowel dilation and further treatment plan pending her progress We will continue to try nonoperative management (2) Multiple myeloma: Admission and Anticipated Discharge Date Admission Date: December 16, 2022 Subjective Patient seen and examined. States her abdominal pain is improved. She did have an NG tube placed overnight with about a liter of bilious fluid put out. She did have 2 large bowel movements this morning and feels improved. She is also passing some flatus. Review of Systems Constitutional: no fever and no chills Physical Exam Constitutional: WD/WN, vitals as above Gastrointestinal (Abdomen): Inspection/Auscultation: abdomen normal to inspection; abdomen not distended Percussion/Palpation: abdomen soft; abdomen nontender, no guarding and no hernia Results & Data ([facility]) Vital Signs (Past 12 Hours) Vital Signs Temp Pulse Pulse Resp BP Pulse Ox O2 Del Method 12/18/22 07:15 36.4 C L 84 16 120/75 97 Room Air 12/17/22 22:21 36.4 C L 12/17/22 21:46 36.7 C 85 16 109/78 98 Room Air PG Care Time/CCT Total # of Minutes Spent Total Time Spent with Patient: Total time spent is greater than 50% in coordination of care (as documented) at patient's floor/unit and/or counseling patient: Coding Level of Care Code 12509 SUB INP/OBS CARE 25MIN Diagnoses Small bowel obstruction K56.609 Multiple myeloma C90.00
[2022-12-18] MEDS: ASPIRIN 81 MG ECTAB PO SCH (08:37)
[2022-12-18] MEDS: ENOXAPARIN INJ 30 MG/0.3 ML SYR SQ SCH (08:46)
[2022-12-18] MEDS: ROSUVASTATIN CALCIUM 10 MG TAB PO SCH (08:47)
[2022-12-18] MEDS: METOPROLOL SUCC 25MG EXT REL TAB PO SCH (08:47)
[2022-12-18] MEDS: valACYclovir HCL 500 MG TABLET PO SCH (08:47)
[2022-12-18] MEDS ORDERED: MAGNESIUM SULFATE / D5W 1 GM/100 ML BAG IV ONE (09:02)
--- NOTE | 2022-12-18 09:07 | Hospitalist Progress Note ---
Date of Service December 18, 2022 Assessment & Plan (1) Small bowel obstruction: Plan: SBO hx of appendectomy Recent consumption of raw steak. Current multiple myeloma ongoing chemotherapy Bowel rest Analgesia, IVF General surgery consult Re: SBO small bowel follow-through yesterday NGT overnight (as pt had emesis) Large BM this AM (12/17/22) Abd. pain resolved Surgery closely following Chronic conditions hypertension, stable hyperlipidemia, on statin Rx hx valvular heart disease (mild MR/TR, mitral valve prolapse ) hx TIA multiple myeloma ongoing chemotherapy Steroid-induced hyperglycemia rule out DM , A1c 5.3% past tobacco abuse DVT prophylaxis per Lovenox subcu Full code Admission and Anticipated Discharge Date Admission Date: December 16, 2022 Subjective Patient seen in follow-up of SBO Small bowel follow through done yesterday Pt developed abd. pain and nausea after that NGT was placed overnight Pt had a large BM this AM Surgery following closely Currently sitting up in bed, in no acute distress No fevers chills chest pain shortness of breath Reports that abd. pain is now gone. She is still has NGT KUB ordered this AM Review of Systems Review of Systems: All systems reviewed & are unremarkable except as noted in Subjective Physical Exam Physical Exam: GENERAL: WD/WN F i n NAD SKIN: [place] l color, warm KARY NT: NC/AT, EOMI, P ERRL, [place] palpebr al conjunctivae, n o ptosis NECK : S upple, no tenderne ss CHEST : CTA, n o tenderness HEAR T : RRR ABDOMEN: abdominal tenderne ss now resolved, + bowel sounds, mini mal distention EX TREMITIES : No LE swelling/tendernes s, moves extremiti es NEUROLOGIC : a lert and oriented, no facial asymmet ry,speech fluent, moves extremities Results & Data Results & Data ([facility]) Vital Signs (Past 12 Hours) Vital Signs Temp Pulse Pulse Resp BP Pulse Ox O2 Del Method 12/18/22 07:15 36.4 C L 84 16 120/75 97 Room Air 12/17/22 22:21 36.4 C L 12/17/22 21:46 36.7 C 85 16 109/78 98 Room Air Laboratory Results 12/18/22 12/18/22 Range/Units 06:09 06:09 WBC 2.22 L (4.8-10.8) K/ul RBC 4.03 (3.93-5.22) M/uL Hgb 13.7 (12.0-16.0) g/dl Hct 38.6 (34.1-44.9) % MCV 95.8 (80.0-100.0) fL MCH 34.0 (25.0-34.0) pg MCHC 35.5 (32.0-36.0) g/dL RDW Std Deviation 48.8 H (36.4-46.3) fL RDW Coeff of Kathy 13.7 (11.5-14.5) % Plt Count 116 L (130-400) K/uL MPV 11.5 (9.4-12.3) fL Sodium 141 (136-145) mmol/L Potassium 3.7 (3.5-5.1) mmol/L Chloride 106 (98-107) mmol/L Carbon Dioxide 25 (21-32) mmol/L Anion Gap 10 (3-11) BUN 34 H (6-23) mg/dl Creatinine 0.82 (0.6-1.2) mg/dl Est Cr Clr Drug Dosing 71.8 ml/min Est GFR ( Amer) 88.9 ml/min Est GFR (Non-Af Amer) 76.7 ml/min BUN/Creatinine Ratio 41.5 H (10-20) Glucose 81 (70-99(Fasting)) mg/dl Calcium 8.5 (8.5-10.1) mg/dl Phosphorus 5.1 H (2.5-4.9) mg/dl Magnesium 1.8 (1.7-2.4) mg/dl Medications Administered Current Inpatient Medications Acetaminophen (Acetaminophen 325 Mg Tab) 650 mg PO Q6H PRN PRN Reason: Fever/pain Stop: 01/15/23 01:03 Last Admin: 12/16/22 20:10 Dose: 650 mg Aspirin (Aspirin 81 Mg Ectab) 81 mg PO DAILY [facility] Stop: 01/15/23 08:59 Last Admin: 12/18/22 08:37 Dose: 81 mg Enoxaparin Sodium (Enoxaparin Inj 30 Mg/0.3 Ml Syr) 30 mg SQ QAM [facility] Stop: 01/15/23 08:59 Last Admin: 12/18/22 08:46 Dose: 30 mg Hydromorphone HCl (Hydromorphone Inj 0.5 Mg/0.5 Ml Syr) 0.5 mg IV Q3H PRN PRN Reason: Pain Stop: 12/30/22 21:33 Last Admin: 12/18/22 03:36 Dose: 0.5 mg Lactated Ringer's (Lr) 1,000 mls @ 100 mls/hr IV .Q10H [facility] Stop: 01/15/23 13:59 Last Admin: 12/18/22 01:10 Dose: 100 mls/hr Promethazine HCl 12.5 mg/ (Sodium Chloride) 50.5 mls @ 201 mls/hr IV Q6H PRN PRN Reason: Nausea And Vomiting Stop: 01/15/23 01:03 Last Infusion: 12/18/22 06:04 Dose: Infused Magnesium Sulfate/Dextrose (Magnesium Sulfate / D5w) 1 gm in 100 mls @ 50 mls/hr IV ONE ONE Stop: 12/18/22 11:01 Ketorolac Tromethamine (Ketorolac Tromethamine 15 Mg/Ml Vial) 15 mg IV Q6H PRN PRN Reason: Pain Stop: 12/21/22 01:03 Last Admin: 12/17/22 22:26 Dose: 15 mg Lorazepam (Lorazepam 0.5 Mg Tab) 0.25 mg PO TID PRN PRN Reason: Anxiety Stop: 01/15/23 01:03 Last Admin: 12/17/22 14:56 Dose: 0.25 mg Metoprolol Succinate (Metoprolol Succ 25mg Ext Rel Tab) [facility] [place]: 01/15/23 08:59 Last Admin: 12/18/22 08:47 Dose: 25 mg Rosuvastatin Calcium (Rosuvastatin Calcium 10 Mg Tab) 10 mg PO QAM [facility] Stop: 01/15/23 08:59 Last Admin: 12/18/22 08:47 Dose: 10 mg Temazepam (Temazepam 15 Mg Capsule) 30 mg PO HS PRN PRN Reason: Sleep Stop: 01/15/23 01:34 Last Admin: 12/16/22 21:49 Dose: 30 mg Tramadol HCl (Tramadol Hcl 50 Mg Tablet) 25 mg PO Q4H PRN PRN Reason: Pain Stop: 01/15/23 01:03 Last Admin: 12/17/22 16:56 Dose: 25 mg Valacyclovir HCl (Valacyclovir Hcl 500 Mg Tablet) 500 mg PO QAM [facility] Stop: 01/15/23 08:59 Last Admin: 12/18/22 08:47 Dose: 500 mg
--- NOTE | 2022-12-18 09:26 | XRay Report ---
KUB CLINICAL HISTORY: Enteric tube placement. FINDINGS: An AP, portable, upright view of the lower chest and upper abdomen is compared to study jorge ed 12/17/2022 and correlated with abdominal CT dated 12/15/2022. An enteric tube has been placed. The t ip projects below the diaphragm over the distal stomach. There is evidence of persistent small bowel obstruction. Small bowel loops measure up to 3.5 cm in diameter. There is no evidence of intraperiton eal free air below the diaphragm. Scarring/atelectasis is seen at the lung bases. There are healed bi lateral rib fractures. IMPRESSION: 1. An enteric tube has been placed as above. 2. Persistent small bowel obstruction. Electronically signed by: Jersey Burt M.D. 12/18/2022 9:25 AM
--- NOTE | 2022-12-18 10:25 | XRay Report ---
KUB HISTORY: Follow up study in a patient with small bowel obstruction Follow contrast progression COMPARISON: KUB 12/17/2022, CT abdomen and pelvis 12/15/2022 FINDINGS: Distal tip of enteric tube projects over the distal stomach. Dilated loops of small bowel a re redemonstrated measuring up to approximately 3.8 cm. Distal progression of enteric contrast, now p resent within the large bowel. Colonic diverticulosis. No renal calculi. No ureteral calculi. No pne umoperitoneum or pneumatosis. No fracture. IMPRESSION: 1. Interval progression of enteric contrast into the large bowel. Findings are compatible with partia l small bowel obstruction. 2. Enteric tube within the stomach. ACT 112: Negative or not required by law. The above report was generated using voice recognition software. It may contain grammatical, syntax o r spelling errors. Electronically signed by: Moses Giordano M.D. 12/18/2022 10:24 AM
[2022-12-19 07:58] LABS: Hemoglobin 11.4 g/dl (12.0-16.0); Mean Corpuscular Hemoglobin 33.5 pg (25.0-34.0); Mean Corpuscular Hgb Conc 34.5 g/dL (32.0-36.0); Mean Corpuscular Volume 97.1 fL (80.0-100.0); Mean Platelet Volume 11.7 fL (9.4-12.3); Platelet Count 112 K/uL (130-400); RDW Coefficient of Variation 13.2 % (11.5-14.5); RDW Standard Deviation 47.4 fL (36.4-46.3)
--- NOTE | 2022-12-19 08:35 | Hospitalist Progress Note ---
Date of Service December 19, 2022 Assessment & Plan (1) Small bowel obstruction: Plan: SBO hx of appendectomy Recent consumption of raw steak. Current multiple myeloma ongoing chemotherapy Bowel rest Analgesia, IVF General surgery consult Re: SBO small bowel follow-through done NGT placed (as pt had emesis) Now abd. pain resolved and pt is having BMs Plan to remove NGT today (12/19) Surgery closely following Chronic conditions hypertension, stable hyperlipidemia, on statin Rx hx valvular heart disease (mild MR/TR, mitral valve prolapse ) hx TIA multiple myeloma ongoing chemotherapy Steroid-induced hyperglycemia rule out DM , A1c 5.3% past tobacco abuse DVT prophylaxis per Lovenox subcu Full code Admission and Anticipated Discharge Date Admission Date: December 16, 2022 Subjective Patient seen in follow-up of SBO Pt is having BMs and abd. pain resolved Still with NG tube, plan to remove NG tube now Surgery following closely Currently sitting up in bed, in no acute distress No fevers chills chest pain shortness of breath Review of Systems Review of Systems: All systems reviewed & are unremarkable except as noted in Subjective Physical Exam Physical Exam: GENERAL: WD/WN F i n NAD SKIN: [place] color, warm KARY NT: NC/AT, EOMI, P ERRL, [place] palpebr al conjunctivae, n o ptosis NECK : S upple, no tenderne ss CHEST : CTA, n o tenderness HEAR T : RRR ABDOMEN: abdominal tenderne ss now resolved, + bowel sounds, mini mal distention EX TREMITIES : No LE swelling/tendernes s, moves extremiti es NEUROLOGIC : a lert and oriented, no facial asymmet ry,speech fluent, moves extremities Results & Data Results & Data ([facility]) Vital Signs (Past 12 Hours) Vital Signs Temp Pulse Resp BP BP Pulse Ox O2 Del Method 12/19/22 07:52 36.8 C 76 16 134/61 100 Room Air 12/18/22 22:14 36.4 C L 74 18 143/80 H 97 Room Air Laboratory Results 12/19/22 12/19/22 Range/Units 07:37 07:37 WBC 2.80 L (4.8-10.8) K/ul RBC 3.40 L (3.93-5.22) M/uL Hgb 11.4 L (12.0-16.0) g/dl Hct 33.0 L (34.1-44.9) % MCV 97.1 (80.0-100.0) fL MCH 33.5 (25.0-34.0) pg MCHC 34.5 (32.0-36.0) g/dL RDW Std Deviation 47.4 H (36.4-46.3) fL RDW Coeff of Kathy 13.2 (11.5-14.5) % Plt Count 112 L (130-400) K/uL MPV 11.7 (9.4-12.3) fL Sodium 142 (136-145) mmol/L Potassium 4.0 (3.5-5.1) mmol/L Chloride 108 H (98-107) mmol/L Carbon Dioxide 28 (21-32) mmol/L Anion Gap 6 (3-11) BUN 19 (6-23) mg/dl Creatinine 0.52 L D (0.6-1.2) mg/dl Est Cr Clr Drug Dosing 113.2 ml/min Est GFR ( Amer) 118.7 ml/min Est GFR (Non-Af Amer) 102.4 ml/min BUN/Creatinine Ratio 36.5 H (10-20) Glucose 65 L (70-99(Fasting)) mg/dl Calcium 8.2 L (8.5-10.1) mg/dl Phosphorus 2.1 L D (2.5-4.9) mg/dl Magnesium 2.0 (1.7-2.4) mg/dl Medications Administered Current Inpatient Medications Acetaminophen (Acetaminophen 325 Mg Tab) 650 mg PO Q6H PRN PRN Reason: Fever/pain Stop: 01/15/23 01:03 Last Admin: 12/16/22 20:10 Dose: 650 mg Aspirin (Aspirin 81 Mg Ectab) 81 mg PO DAILY [facility] Stop: 01/15/23 08:59 Last Admin: 12/18/22 08:37 Dose: 81 mg Enoxaparin Sodium (Enoxaparin Inj 30 Mg/0.3 Ml Syr) 30 mg SQ QAM [facility] Stop: 01/15/23 08:59 Last Admin: 12/18/22 08:46 Dose: 30 mg Hydromorphone HCl (Hydromorphone Inj 0.5 Mg/0.5 Ml Syr) 0.5 mg IV Q3H PRN PRN Reason: Pain Stop: 12/30/22 21:33 Last Admin: 12/18/22 03:36 Dose: 0.5 mg Lactated Ringer's (Lr) 1,000 mls @ 100 mls/hr IV .Q10H [facility] Stop: 01/15/23 13:59 Last Admin: 12/18/22 23:35 Dose: 100 mls/hr Promethazine HCl 12.5 mg/ (Sodium Chloride) 50.5 mls @ 201 mls/hr IV Q6H PRN PRN Reason: Nausea And Vomiting Stop: 01/15/23 01:03 Last Infusion: 12/18/22 06:04 Dose: Infused Ketorolac Tromethamine (Ketorolac Tromethamine 15 Mg/Ml Vial) 15 mg IV Q6H PRN PRN Reason: Pain Stop: 12/21/22 01:03 Last Admin: 12/17/22 22:26 Dose: 15 mg Lorazepam (Lorazepam 0.5 Mg Tab) 0.25 mg PO TID PRN PRN Reason: Anxiety Stop: 01/15/23 01:03 Last Admin: 12/17/22 14:56 Dose: 0.25 mg Metoprolol Succinate (Metoprolol Succ 25mg Ext Rel Tab) [facility] [place]: 01/15/23 08:59 Last Admin: 12/18/22 08:47 Dose: 25 mg Rosuvastatin Calcium (Rosuvastatin Calcium 10 Mg Tab) 10 mg PO QAM [facility] Stop: 01/15/23 08:59 Last Admin: 12/18/22 08:47 Dose: 10 mg Temazepam (Temazepam 15 Mg Capsule) 30 mg PO HS PRN PRN Reason: Sleep Stop: 01/15/23 01:34 Last Admin: 12/16/22 21:49 Dose: 30 mg Tramadol HCl (Tramadol Hcl 50 Mg Tablet) 25 mg PO Q4H PRN PRN Reason: Pain Stop: 01/15/23 01:03 Last Admin: 12/17/22 16:56 Dose: 25 mg Valacyclovir HCl (Valacyclovir Hcl 500 Mg Tablet) 500 mg PO QAM [facility] Stop: 01/15/23 08:59 Last Admin: 12/18/22 08:47 Dose: 500 mg
[2022-12-19] MEDS: ASPIRIN 81 MG ECTAB PO SCH (09:39)
[2022-12-19] MEDS: METOPROLOL SUCC 25MG EXT REL TAB PO SCH (09:39)
[2022-12-19] MEDS: valACYclovir HCL 500 MG TABLET PO SCH (09:40)
[2022-12-19] MEDS: ROSUVASTATIN CALCIUM 10 MG TAB PO SCH (09:40)
[2022-12-19 10:23] LABS: BUN Creatinine Ratio 36.5 (10-20); Calcium 8.2 mg/dl (8.5-10.1); Creatinine Clr Calc Pharmacy 113.2 ml/min; Est GFR (African American) 118.7 ml/min; Est GFR (Non-African American) 102.4 ml/min; Phosphorus 2.1 mg/dl (2.5-4.9)
--- NOTE | 2022-12-19 10:47 | Surgery Progress Note ---
Date of Service December 19, 2022 Assessment & Plan (1) Small bowel obstruction: Plan: Patient is feeling well Denies abdominal pain/nausea/vomiting. Having + bowel function Will d/c NGT. Start clears and advance diet to low fiber as tolerates If does well may consider discharge later today vs. tomorrow Should continue on a low fiber diet over the next couple of weeks and then slowly reincorporate No need to follow up with us in the clinic Admission and Anticipated Discharge Date Admission Date: December 16, 2022 Supervising Physician Co-Signing Physician Notes I personally saw and examined the patient with Modesta Latif PA-C and agree with the assessment and plan. 62-year-old female with history of multiple myeloma, partial small bowel obstruction improving She continues to have bowel movements pass gas Remove NG tube and start clear liquids Can advance her diet as tolerated and discharge home when she is tolerating low fiber diet Subjective Patient reports feeling much better. Passing flatus and BMs. No abdominal pain, nausea/vomiting. Burping here and there. Physical Exam Physical Exam: awake/alert, in good spirits Respiratory: normal respiratory effort Gastrointestinal (Abdomen): Inspection/Auscultation: abdomen not distended Percussion/Palpation: abdomen soft; abdomen nontender Results & Data ([facility]) Vital Signs (Past 12 Hours) Vital Signs Temp Pulse Resp BP Pulse Ox O2 Del Method 12/19/22 09:55 Room Air 12/19/22 07:52 36.8 C 76 16 134/61 100 Room Air PG Care Time/CCT Total # of Minutes Spent Total Time Spent with Patient: Total time spent is greater than 50% in coordination of care (as documented) at patient's floor/unit and/or counseling patient: Coding Level of Care Code 04706 SUB INP/OBS CARE 12/24MIN Diagnoses Small bowel obstruction K56.609
[2022-12-19] MEDS: ENOXAPARIN INJ 30 MG/0.3 ML SYR SQ SCH (10:51)
[2022-12-19] MEDS: LACTATED RINGER'S 1,000 ML IV SCH (12:24)
[2022-12-19] MEDS: TEMAZEPAM 15 MG CAPSULE PO PRN (22:56)
--- NOTE | 2022-12-20 08:31 | Hospitalist Progress Note ---
Date of Service December 20, 2022 Assessment & Plan (1) Small bowel obstruction: Plan: SBO hx of appendectomy Recent consumption of raw steak. Current multiple myeloma ongoing chemotherapy Bowel rest Analgesia, IVF General surgery consult Re: SBO small bowel follow-through done Now abd. pain resolved and pt is having BMs NGT removed yesterday (12/19) Surgery closely following Chronic conditions hypertension, stable hyperlipidemia, on statin Rx hx valvular heart disease (mild MR/TR, mitral valve prolapse ) hx TIA multiple myeloma ongoing chemotherapy Steroid-induced hyperglycemia rule out DM , A1c 5.3% past tobacco abuse DVT prophylaxis per Lovenox subcu Full code Admission and Anticipated Discharge Date Admission Date: December 16, 2022 Subjective Patient seen in follow-up of SBO Pt is having BMs and abd. pain resolved NGT removed yesterday Currently sitting up in bed, in no acute distress No fevers chills chest pain shortness of breath Review of Systems Review of Systems: All systems reviewed & are unremarkable except as noted in Subjective Physical Exam Physical Exam: GENERAL: WD/WN F in NAD SKIN: Norm al color, warm HE ENT: NC/AT, EOMI, PERRL, [place] palpeb ral conjunctivae, no ptosis NECK : Supple, no tendern ess CHEST : CTA, no tenderness HEA RT : RRR ABDOMEN: abdominal tendern ess now resolved, +bowel sounds, min imal distention E XTREMITIES : No LE swelling/tenderne ss, moves extremit ies NEUROLOGIC : alert and oriented , no facial asymme try,speech fluent, moves extremities Results & Data Results & Data ([facility]) Vital Signs (Past 12 Hours) Vital Signs Temp Pulse Resp BP Pulse Ox O2 Del Method 12/20/22 07:36 37.3 C 62 18 118/78 99 Room Air 12/20/22 00:28 36.5 C 70 18 105/67 97 Room Air Laboratory Results 12/20/22 12/19/22 Range/Units 07:23 07:37 Sodium 140 142 (136-145) mmol/L Potassium 4.0 4.0 (3.5-5.1) mmol/L Chloride 109 H 108 H (98-107) mmol/L Carbon Dioxide 29 28 (21-32) mmol/L Anion Gap 2 L 6 (3-11) BUN 11 19 (6-23) mg/dl Creatinine 0.50 L 0.52 L D (0.6-1.2) mg/dl Est Cr Clr Drug Dosing 117.7 113.2 ml/min Est GFR ( Amer) 120.2 118.7 ml/min Est GFR (Non-Af Amer) 103.7 102.4 ml/min BUN/Creatinine Ratio 22.0 H 36.5 H (10-20) Glucose 114 H 65 L (70-99(Fasting)) mg/dl Calcium 7.9 L 8.2 L (8.5-10.1) mg/dl Phosphorus 2.1 L D (2.5-4.9) mg/dl Magnesium 2.0 (1.7-2.4) mg/dl Medications Administered Current Inpatient Medications Acetaminophen (Acetaminophen 325 Mg Tab) 650 mg PO Q6H PRN PRN Reason: Fever/pain Stop: 01/15/23 01:03 Last Admin: 12/16/22 20:10 Dose: 650 mg Aspirin (Aspirin 81 Mg Ectab) 81 mg PO DAILY [facility] Stop: 01/15/23 08:59 Last Admin: 12/19/22 09:39 Dose: 81 mg Enoxaparin Sodium (Enoxaparin Inj 30 Mg/0.3 Ml Syr) 30 mg SQ QAM [facility] Stop: 01/15/23 08:59 Last Admin: 12/19/22 10:51 Dose: Not Given Hydromorphone HCl (Hydromorphone Inj 0.5 Mg/0.5 Ml Syr) 0.5 mg IV Q3H PRN PRN Reason: Pain Stop: 12/30/22 21:33 Last Admin: 12/18/22 03:36 Dose: 0.5 mg Promethazine HCl 12.5 mg/ (Sodium Chloride) 50.5 mls @ 201 mls/hr IV Q6H PRN PRN Reason: Nausea And Vomiting Stop: 01/15/23 01:03 Last Infusion: 12/18/22 06:04 Dose: Infused Ketorolac Tromethamine (Ketorolac Tromethamine 15 Mg/Ml Vial) 15 mg IV Q6H PRN PRN Reason: Pain Stop: 12/21/22 01:03 Last Admin: 12/17/22 22:26 Dose: 15 mg Lorazepam (Lorazepam 0.5 Mg Tab) 0.25 mg PO TID PRN PRN Reason: Anxiety Stop: 01/15/23 01:03 Last Admin: 12/17/22 14:56 Dose: 0.25 mg Metoprolol Succinate (Metoprolol Succ 25mg Ext Rel Tab) [facility] [place]: 01/15/23 08:59 Last Admin: 12/19/22 09:39 Dose: 25 mg Rosuvastatin Calcium (Rosuvastatin Calcium 10 Mg Tab) [facility] [place]: 01/15/23 08:59 Last Admin: 12/19/22 09:40 Dose: 10 mg Temazepam (Temazepam 15 Mg Capsule) 30 mg PO HS PRN PRN Reason: Sleep Stop: 01/15/23 01:34 Last Admin: 12/19/22 22:56 Dose: 30 mg Tramadol HCl (Tramadol Hcl 50 Mg Tablet) 25 mg PO Q4H PRN PRN Reason: Pain Stop: 01/15/23 01:03 Last Admin: 12/17/22 16:56 Dose: 25 mg Valacyclovir HCl (Valacyclovir Hcl 500 Mg Tablet) 500 mg PO [facility] Stop: 01/15/23 08:59 Last Admin: 12/19/22 09:40 Dose: 500 mg
[2022-12-20 08:39] LABS: Calcium 7.9 mg/dl (8.5-10.1)
[2022-12-20 08:45] LABS: Creatinine Clr Calc Pharmacy 117.7 ml/min; Est GFR (African American) 120.2 ml/min; Est GFR (Non-African American) 103.7 ml/min
[2022-12-20] MEDS: METOPROLOL SUCC 25MG EXT REL TAB PO SCH (09:34)
[2022-12-20] MEDS: valACYclovir HCL 500 MG TABLET PO SCH (09:34)
[2022-12-20] MEDS: ENOXAPARIN INJ 30 MG/0.3 ML SYR SQ SCH (09:35)
[2022-12-20] MEDS: ROSUVASTATIN CALCIUM 10 MG TAB PO SCH (09:35)
--- NOTE | 2022-12-20 09:59 | Discharge Summary ---
Date of Service December 20, 2022 Admission HPI Per Admitting Provider History obtained from patient and records. Medical history significant for hypertension, hyperlipidemia, valvular heart disease (mild MR/TR, mitral valve prolapse ), TIA, multiple myeloma ongoing chemotherapy, chronic interstitial cystitis as per records, past tobacco abuse. Few days history of achy abdominal pain going to the chest. Transient diarrhea symptoms. Consumption of raw steak at a gathering. Fever, no chills. Some nausea, no vomiting symptoms. Symptoms settled down for about a day. Recurrence noted today. Patient brought to the ER by . 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 [employer] Admission Exam Per Admitting Provider GENERAL: Comfortable, pleasant, no respiratory distress SKIN: Normal color, warm HEENT: [place] palpebral conjunctivae, no ptosis, dry buccal mucosa NECK : Supple, no tenderness CHEST : CTA, no tenderness HEART : RRR, no obvious murmurs ABDOMEN: Some distention, central abdominal tenderness EXTREMITIES : No LE swelling/tenderness, no other conspicuous deformities noted NEUROLOGIC : Coherent, no facial asymmetry, no other gross focality Principal Diagnosis small bowel obstruction Discharge Exam GENERAL: WD/WN F in NAD SKIN: Normal color, warm HEENT: NC/AT, EOMI, PERRL, [place] palpebral conjunctivae, no ptosis NECK : Supple, no tenderness CHEST : CTA, no tenderness HEART : RRR ABDOMEN: abdominal tenderness now resolved, +bowel sounds, minimal distention EXTREMITIES : No LE swelling/tenderness, moves extremities NEUROLOGIC : alert and oriented, no facial asymmetry,speech fluent, moves extremities Discharge Data Allergies Allergy/AdvReac Type Severity Reaction Status Date / Time No Known Allergies Allergy Unverified 02/06/19 07:04 Consultations 12/15/22 23:29 ED Decision to Admit Stat 12/16/22 01:35 Consult General Surgery Routine Ordered Studies 12/15/22 22:19 CT Abd and Pelvis [CT abd pelvis IV con only] Stat CT angio chest PE protocol Stat FINDINGS: CHEST: Thyroid: Normal in size and heterogeneous in attenuation. Thoracic aorta: The thoracic aorta is normal in caliber and demonstrates standard 3-vessel arch anatomy. No dissection is seen. Pulmonary vasculature: The pulmonary trunk is normal in caliber. There are no filling defects identified in the main, lobar, or segmental pulmonary arteries to indicate pulmonary embolus. Heart: The heart is mildly enlarged and without pericardial effusion. There are scattered coronary artery calcifications. Lungs and pleural spaces: There is mild emphysema. No airspace consolidation or pleural effusion is identified. Foci of parenchymal scarring are seen throughout both lungs. The trachea and central airways are clear. Mediastinum: There is no mediastinal lymphadenopathy. Cecille: Clear. Axillae: There is no axillary lymphadenopathy. Bony thorax: The skeletal structures are heterogeneously osteopenic. Diffuse osteolytic bone disease is consistent with the known history of multiple myeloma. There are chronic/healed bilateral rib fractures. ABDOMEN AND PELVIS: Liver: The contrast-enhanced liver is normal in size, contour, and attenuation. There is no intrahepatic biliary ductal dilatation. The hepatic veins and portal veins are patent. Gallbladder: Unremarkable. Spleen: Normal in size and attenuation. Pancreas: Unremarkable. Adrenal glands: Unremarkable. Kidneys: The contrast enhanced kidneys are normal in size and without hydronephrosis. The kidneys enhance symmetrically. A 15 mm cyst is noted on the right. Abdominal vasculature: The abdominal aorta is normal in course and caliber. Bowel: There is a focally dilated and fecalized loop of distal small bowel in the pelvis seen on axial image #318. There is mild surrounding inflammation. There is an apparent transition point distal to this (axial image #285), and the distal small bowel is decompressed. The upstream small bowel loops are only modestly dilated. There is no pneumatosis intestinalis or portal venous gas. There is moderate colonic fecal retention. The appendix is not identified and reported surgically absent. Peritoneum: There is no intraperitoneal free air or abdominal ascites. Lymphadenopathy: None. Pelvic viscera: The bladder, uterus, and adnexa are normal as visualized. Skeletal structures: The skeletal structures are heterogeneously osteopenic. Diffuse osteolytic bone disease is consistent with a known history of multiple myeloma. There are chronic/healed right pubic ring fractures. There is a minimal chronic superior end plate compression deformity of L4. Mild lumbosacral spondylosis is observed. Tarlov cysts are noted in the sacrum. IMPRESSION: 1. There is no evidence of pulmonary embolus in the main, lobar, or segmental pulmonary arteries. 2. Cardiomegaly and mild emphysema. 3. No airspace consolidation or pleural effusions. 4. There is a focally dilated and fecalized loop of distal small bowel in the pelvis as detailed above with surrounding inflammation. There is an apparent focal transition point distal to this loop, and the distal small bowel is decompressed. There is only mild dilatation of the proximal small bowel. A developing bowel obstruction is not excluded. There is no proximal transition point identified to suggest closed loop obstruction. Clinical correlation will be essential and surgical evaluation is advised. 5. Diffuse osteolytic bone disease is consistent with the known history of multiple myeloma. 6. Additional findings as above. ACT 112: Negative or not required by law. 12/17/22 09:42 [place] small bowel follow through Routine FINDINGS: Initial images demonstrated contrast within the stomach and proximal to mid small bowel. There are multiple dilated loops of small bowel measuring up to 4 cm in diameter. This has progressed in the interval. Images were obtained over a 10 hour time interval. Contrast did not reach the distal small bowel or colon. Therefore, this is consistent with a high-grade small bowel obstruction. The transition point was not clearly identified on this study due to the slow transit of contrast. IMPRESSION: Multiple dilated loops of small bowel again seen within the abdomen which has progressed in the interval. Contrast did not reach the distal small bowel or colon. Therefore, this is consistent with a high-grade small bowel obstruction. Surgical consultation advised Hospital Course (1) Small bowel obstruction: SBO hx of appendectomy Recent consumption of raw steak. Current multiple myeloma ongoing chemotherapy Bowel rest Analgesia, IVF General surgery consult Re: SBO small bowel follow-through done Now abd. pain resolved and pt is having BMs NGT removed yesterday (12/19) Surgery closely following Chronic conditions hypertension, stable hyperlipidemia, on statin Rx hx valvular heart disease (mild MR/TR, mitral valve prolapse ) hx TIA multiple myeloma ongoing chemotherapy Steroid-induced hyperglycemia rule out DM , A1c 5.3% past tobacco abuse Total Time Total Time Spent Total Time Spent (In Minutes): 40 Discharge Plan Discharge Items Patient Disposition: Home - Self-Care Reason For Visit: SBO Discharge Diagnosis: small bowel obstruction Condition on Discharge: Good Activity: Per Instructions section Lifting: Gradually increase as tolerated Bathing: No limitations Exercise/Sports: Rest today Driving/Machine Use: Resume 1 day after discharge Non-emergency contact: Primary Care Provider Call non-emergency contact if: you have any medication questions, your pain is not controlled, you have a fever and your temperature is above 101.5 Follow-up/Referrals: David De La Fuente MD [Primary Care Provider] - Diet: Low Fiber Addtl Attending Provider Instructions: Follow-up with your primary care doctor, and oncologist. Continue on a low fiber diet over the course of the next couple of weeks until your bowel movements normalize. Make sure to stay well-hydrated. Pending Studies at Discharge: No Stand-Alone Forms: My [facility], Smoking Cessation Medications and DC Order Prescriptions: Continued potassium chloride 10 mEq tablet extended release 10 meq PO QAM valacyclovir 500 mg tablet 500 mg PO QAM aspirin [Sarah Low Dose Aspirin] 81 mg Tablet,Delayed Release (Dr/Ec) 81 mg PO DAILY dexamethasone 4 mg tablet 20 mg PO . EVERY OTHER WEEK Rx Instructions: 5 tablets every other week metoprolol succinate 25 mg tablet extended release 24 hr 25 mg PO QAM lenalidomide [Revlimid] 10 mg capsule 10 mg PO UD Rx Instructions: take 1 capsule daily for 21 days then off for 7 days temazepam 30 mg capsule 30 mg PO HS PRN (Reason: Sleep) betamethasone, augmented 0.05 % ointment 1 applic TOPICAL BID PRN (Reason: flares) Rx Instructions: apply to fingers rosuvastatin 10 mg tablet 10 mg PO QAM turmeric root extract 500 mg Tablet 7,000 mg PO DAILY Rx Instructions: 14 tablets = 7000 mg Discharge Orders: Discharge Order (Routine); Ordered 12/20/22 Ordered By: Silverio Marie Admission Data Admit Date/Time: 12/16/22 01:02 Attending Provider: Silverio Marie Admit Provider: Ronn Childs Primary Care Provider: David De La Fuente Other Providers: Ronn Childs ; Mckay Davalos ; Levar Cheney ; Prince Torres ; Anand Roque Jr ; Glynn Rivera ; Drew Adler ; Modesta Latif ; Roni Saldaña ; Ruben Baca ; Virgilio Ingram
--- NOTE | 2022-12-20 13:52 | Surgery Progress Note ---
Date of Service December 20, 2022 Assessment & Plan (1) Small bowel obstruction: Plan: SBO resolved DC'd home Low fiber diet Return precautions given Admission and Anticipated Discharge Date Admission Date: December 16, 2022 Subjective Admitted with SBO, feeling much better, anxious for discharge Physical Exam Constitutional: WD/WN, vitals as above Gastrointestinal (Abdomen): normal bowel sounds, soft, nontender, no hepatosplenomegaly Results & Data ([facility]) Vital Signs (Past 12 Hours) Vital Signs Temp Pulse Pulse Resp BP BP Pulse Ox 12/20/22 10:28 37.3 C 62 84 18 118/78 143/80 H 99 12/20/22 07:36 37.3 C 62 18 118/78 99 O2 Del Method 12/20/22 10:28 12/20/22 07:36 Room Air PG Care Time/CCT Total # of Minutes Spent Total Time Spent with Patient: Total time spent is greater than 50% in coordination of care (as documented) at patient's floor/unit and/or counseling patient: Coding Level of Care Code 71170 SUB INP/OBS CARE 12/24MIN Diagnoses Small bowel obstruction K56.609
== END 2022-12-20 11:49 | disposition home or self-care (01) | DRG 389 ==
LOC: ED 20:05 → EDINP 12-16 01:02 → SUATTDRO 12-16 01:02 → 3N 12-16 01:36